=== PATIENT | male | born 1950 | race Caucasian/White ===

== ENCOUNTER 2019-11-10 14:36 | Emergency (ER) | payer MEDICAID, MEDICARE ==
--- NOTE | 2019-11-10 14:46 | EDM.PDOC ---
ED HPI GENERAL MEDICAL PROBLEM - General Chief Complaint: Medication Administration Stated Complaint: MED REFILL Time Seen by Provider: 11/10/19 14:44 Source of Information: Reports: Patient History Limitations: Reports: No Limitations - History of Present Illness INITIAL COMMENTS - FREE TEXT/NARRATIVE: HISTORY AND PHYSICAL: History of present illness: Patient is a 69-year-old male who presents to the emergency room with request of wanting his medications refilled. He states he previously Dr. Bowen at the [facility] who was filling his chronic medications. He attempted to get an appointment but was told the provider no longer works at that facility. He has ran out of his medication. He offers no systemic complaints. Patient denies any fever, chills, headache, change in vision, syncope or near syncope. Denies any chest pain, back pain, shortness of breath or cough. Denies any GI or symptoms. Patient has been eating and drinking appropriately. Review of systems: As per history of present illness and below otherwise all systems reviewed and negative. Past medical history: As per history of present illness and as reviewed below otherwise noncon tributory. Surgical history: As per history of present illness and as reviewed below otherwise noncontributory. Social history: See social history for further information Family history: As per history of present illness and as reviewed below otherwise noncontributory. Physical exam: General: Well-developed and well-nourished 69-year-old male. Alert and oriented. Nontoxic-appearing and in no acute distress. Vital signs are stable and have been reviewed by me. HEENT: Atraumatic, normocephalic, pupils equal and reactive bilaterally, negative for conjunctival pallor or scleral icterus, mucous membranes moist, TMs normal bilaterally, throat clear, neck supple, nontender, trachea midline. No drooling or trismus noted. No meningeal signs. No hot potato voice noted. Lungs: Clear to auscultation, breath sounds equal bilaterally, chest nontender. Heart: S1S2, regular rate and rhythm without overt murmur Abdomen: Soft, nondistended, nontender. Negative for masses or hepatosplenomegaly. Negative for costovertebral tenderness. Skin: Intact, warm, dry. No lesions or rashes noted. Extremities: Atraumatic, moves all extremities per self without difficulty or deficits, negative for cords or calf pain. Neurovascular unremarkable. Neuro: Awake, alert, oriented. Cranial nerves II through XII unremarkable. Cerebellum unremarkable. Motor and sensory unremarkable throughout. Exam nonfocal. Notes: Patient declines wanting or needing any diagnostics at this time, asymptomatic. The pharmacy was called to confirm dosing of his medications as he is unsure. Nursing staff did call our clinic to set him up a follow-up appointment for further care and management. Supportive care measures were reviewed and discussed. Voices understanding and is agreeable to plan of care. Denies any further questions or concerns at this time. Diagnostics: None Therapeutics: None Prescription: Carvediolol (15 days worth of all) Lisinopril Oxycodone Zofran Impression: Encounter for medication refill Plan: 1. Take your home medications as directed. Further medication refill must be done through a primary care provider. We made you an appointment with Dr. Aguirre on Thursday (11/18/2019) at 3:30pm. Please arrive 30 minutes early. Please wear a mask and bring your ID/Insurance cards. 2. You can alternate Tylenol and/or ibuprofen as needed for pain management. 3. Return to the emergency room as needed and as discussed. Definitive disposition and diagnosis as appropriate pending reevaluation and review of above. - Related Data Allergies Allergy/AdvReac Type Severity Reaction Status Date / Time No Known Allergies Allergy Verified 11/10/19 15:10 Home Meds: Home Meds carvediloL [Carvedilol] 6.25 mg PO BID 11/21/16 [History] oxyCODONE 10 mg PO Q4HR PRN 11/21/16 [History] Digoxin [Lanoxin] 250 mcg PO DAILY #0 tablet 11/25/16 [Rx] Lisinopril 5 mg PO DAILY 07/28/17 [History] Ondansetron [Zofran ODT] 4 mg PO Q6H PRN #10 tab.dis 01/20/19 [Rx] DULoxetine [Cymbalta] 30 mg PO DAILY 11/10/19 [History] DULoxetine [Cymbalta] 30 mg PO DAILY 15 Days #15 cap 11/10/19 [Rx] Digoxin 250 mcg PO DAILY 15 Days #15 tablet 11/10/19 [Rx] Ondansetron [Zofran ODT] 4 mg PO Q6H PRN #8 tab.dis 11/10/19 [Rx] Zolpidem Tartrate [Zolpidem Tartrate ER] 12.5 mg PO DAILY PRN 11/10/19 [History] carvediloL [Carvedilol] 6.25 mg PO BID 15 Days #30 tablet 11/10/19 [Rx] lisinopriL [Lisinopril] 5 mg PO DAILY 15 Days #15 tablet 11/10/19 [Rx] oxyCODONE HCl [Oxycodone HCL] 10 mg PO BID PRN 15 Days #30 tablet 11/10/19 [Rx] Past Medical History Cardiovascular History: Reports: Afib, High Cholesterol, Hypertension, Other (See Below) Respiratory History: Reports: None Gastrointestinal History: Reports: None Genitourinary History: Reports: None Musculoskeletal History: Reports: Back Pain, Chronic Neurological History: Reports: Neuropathy, Peripheral Psychiatric History: Reports: Depression Endocrine/Metabolic History: Reports: Obesity/BMI 30+, Other (See Below) Other Endocrine/Metabolic History: pre diabetic Hematologic History: Reports: None Dermatologic History: Other Dermatologic History: rosacea - Infectious Disease History Infectious Disease History: Reports: Chicken Pox, Measles, Mumps - Past Surgical History Head Surgeries/Procedures: Reports: None HEENT Surgical History: Reports: Oral Surgery Cardiovascular Surgical History: Reports: None GI Surgical History: Reports: None Male Surgical History: Reports: None Endocrine Surgical History: Reports: None Neurological Surgical History: Reports: None Musculoskeletal Surgical History: Reports: None Social & Family History - Family History Family Medical History: Noncontributory Cardiac: Reports: [place] Endocrine/Metabolic: Reports: Diabetes, type II - Caffeine Use Caffeine Use: Reports: Coffee ED ROS GENERAL - Review of Systems Review Of Systems: Comprehensive ROS is negative, except as noted in HPI. ED EXAM, GENERAL - Physical Exam Exam: See Below (See dictation) Course - Vital Signs Last Recorded V/S: Last Vital Signs Temp 96.5 F L 11/10/19 15:07 Pulse 97 11/10/19 15:43 Resp 18 11/10/19 15:43 BP 116/69 11/10/19 15:43 Pulse Ox 99 11/10/19 15:43 Departure - Departure Time of Disposition: 15:10 Disposition: Home, Self-Care 01 Condition: Good Clinical Impression: Encounter for medication refill - Discharge Information Prescriptions: carvediloL [Carvedilol] 6.25 mg PO BID 15 Days #30 tablet DULoxetine [Cymbalta] 30 mg PO DAILY 15 Days #15 cap Digoxin 250 mcg PO DAILY 15 Days #15 tablet lisinopriL [Lisinopril] 5 mg PO DAILY 15 Days #15 tablet oxyCODONE HCl [Oxycodone HCL] 10 mg PO BID PRN 15 Days #30 tablet PRN Reason: Pain Ondansetron [Zofran ODT] 4 mg PO Q6H PRN #8 tab.dis PRN Reason: Nausea Instructions: Medicine Refill at the Emergency Department Referrals: PCP,None [Primary Care Provider] - Forms: ED Department Discharge Additional Instructions: The following information is given to patients seen in the emergency department who are being discharged to home. This information is to outline your options for follow-up care. We provide all patients seen in our emergency department with a follow-up referral. The need for follow-up, as well as the timing and circumstances, are variable depending upon the specifics of your emergency department visit. If you don't have a primary care physician on staff, we will provide you with a referral. We always advise you to contact your personal physician following an emergency department visit to inform them of the circumstance of the visit and for follow-up with them and/or the need for any referrals to a consulting specialist. The emergency department will also refer you to a specialist when appropriate. This referral assures that you have the opportunity for follow-up care with a specialist. All of these measure are taken in an effort to provide you with optimal care, which includes your follow-up. Under all circumstances we always encourage you to contact your private physician who remains a resource for coordinating your care. When calling for follow-up care, please make the office aware that this follow-up is from your recent emergency room visit. If for any reason you are refused follow-up, please contact the [facility] Emergency Department at and asked to speak to the emergency department charge nurse. [facility] [address] [place] [id number] [address] Thank you for choosing the [facility] emergency department in [place] for your medical needs today. It was a pleasure caring for you. You were seen in the emergency department for medication refill. 1. Take your home medications as directed. Further medication refill must be done through a primary care provider. We made you an appointment with Dr. Aguirre on Thursday (11/18/2019) at 3:30pm. Please arrive 30 minutes early. Please wear a mask and bring your ID/Insurance cards. 2. You can alternate Tylenol and/or ibuprofen as needed for pain management. 3. Return to the emergency room as needed and as discussed. Sepsis Event Note (ED) - Focused Exam Vital Signs: Vital Signs Temp Pulse Resp BP Pulse Ox 11/10/19 15:43 97 18 116/69 99 11/10/19 15:07 96.5 F L 56 L 17 108/62 99
--- NOTE | 2019-11-10 15:52 | PCM.SN.2 ---
- Free Text/Narrative Note: Attending physician note I have seen and evaluated the patient with the advanced practice provider. Chief Complaint: Medication refill Brief HPI: Ran out of his narcotic medication and did not have a way to get it. [place] regulations state that we will need to get him to his primary care physician. ROS: Reviewed and agree Focused Exam: VITAL SIGNS: Reviewed. GENERAL: Awake, conversant, GCS 15, no apparent distress HEAD: No visible signs of trauma EYES: Pupils equal, EOM grossly intact EARS: Hearing grossly intact. MOUTH: No visible lesions NECK: Appears supple CHEST: Breathing comfortably, clear lung sounds CARDIAC: Regular rhythm ABDOMEN: Soft, nontender, benign exam NEUROLOGIC EXAM: Awake and Alert, non-focal SKIN: No visible rashes EXTREMITIES: No deformities noted VASCULAR: Appears well perfused Assessment & Plan: 1. Medication refill 2. Chronic pain 3. Opioid dependence
[2019-11-10 17:03] VITALS: BP 116/69; PULSE 97
== END 2019-11-10 15:44 | disposition home or self-care (01) ==
LOC: MW.ED 14:36
DX: Z76.0 Encounter for issue of repeat prescription (principal); I48.91 Unspecified atrial fibrillation; I10 Essential (primary) hypertension; G62.9 Polyneuropathy, unspecified; F32.9 Major depressive disorder, single episode, unspecified; E66.9 Obesity, unspecified; Z68.30 Body mass index [BMI] 30.0-30.9, adult; Z79.899 Other long term (current) drug therapy
CPT/HCPCS: 99281

== ENCOUNTER 2019-12-14 08:45 | Emergency (ER) | payer MEDICAID, MEDICARE ==
--- NOTE | 2019-12-14 09:42 | EDM.PDOC ---
ED HPI GENERAL MEDICAL PROBLEM - General Chief Complaint: Lower Extremity Injury/Pain Stated Complaint: NEUROPATHY IN BOTH FEET Time Seen by Provider: 12/14/19 08:48 Source of Information: Reports: Patient, Old Records History Limitations: Reports: No Limitations - History of Present Illness INITIAL COMMENTS - FREE TEXT/NARRATIVE: 69-year-old male with past medical history of axonal polyneuropathy, atrial fibrillation with RVR, chronic pain, restless leg syndrome, prediabetes, hypertension, digoxin therapy, hyperlipidemia, chronic back pain, peripheral neuropathy, depression complaining of lower extremity pain. Today the patient presents the emergency department complaining of worsening of his chronic bilateral lower extremity neuropathic pain. He states that he ran out of his prescribed long-acting opioid pain medications and is requesting a refill of long-acting oxycodone. He denies any new symptoms today, denies any recent trauma. Denies any erythema, fever, or chills. He states that he has been unable to get into see a primary physician in the past several weeks so he has been unable to get his medications refilled. He is not currently under the care of a pain management clinic. No other complaints at this time. Past medical history: Reviewed, no additional pertinent history. Surgical history: Reviewed in system, no additional pertinent history. Social history: Reviewed in system, no additional pertinent history. Family history: Reviewed in system, no additional pertinent history. PHYSICAL EXAM Vital signs reviewed. Nursing notes reviewed. Constitutional: Awake, alert, non-distressed. Head: Normocephalic, atraumatic. Eyes: EOMI, conjunctiva normal, no discharge, no scleral icterus. Cardiovascular: 2+ b/l DP pulses, capillary refill less than 2 seconds. Pulmonary: normal work of breathing, no accessory muscle use. Abdomen/GI: nondistended Musculoskeletal: No deformities. Integumentary: Appropriate color for ethnicity, warm, dry, no pallor or jaundice, no rash. Bilateral lower extremities are hairless. There is a clean appearing ulcer on the medial aspects of each great toe without drainage, erythema, or evidence of active infection.. Neurologic: Alert, answering questions appropriately, normal speech, no facial droop, moving all extremities well. Psychiatric: Appropriate mood and affect, normal thought process. bilateral legs Pain Score (Numeric/FACES): 10 - Related Data Allergies Allergy/AdvReac Type Severity Reaction Status Date / Time No Known Allergies Allergy Verified 12/14/19 09:08 Home Meds: Home Meds carvediloL [Carvedilol] 6.25 mg PO BID 11/21/16 [History] oxyCODONE 10 mg PO Q4HR PRN 11/21/16 [History] Digoxin [Lanoxin] 250 mcg PO DAILY #0 tablet 11/25/16 [Rx] Lisinopril 5 mg PO DAILY 07/28/17 [History] Ondansetron [Zofran ODT] 4 mg PO Q6H PRN #10 tab.dis 01/20/19 [Rx] DULoxetine [Cymbalta] 30 mg PO DAILY 11/10/19 [History] DULoxetine [Cymbalta] 30 mg PO DAILY 15 Days #15 cap 11/10/19 [Rx] Digoxin 250 mcg PO DAILY 15 Days #15 tablet 11/10/19 [Rx] Ondansetron [Zofran ODT] 4 mg PO Q6H PRN #8 tab.dis 11/10/19 [Rx] Zolpidem Tartrate [Zolpidem Tartrate ER] 12.5 mg PO DAILY PRN 11/10/19 [History] carvediloL [Carvedilol] 6.25 mg PO BID 15 Days #30 tablet 11/10/19 [Rx] lisinopriL [Lisinopril] 5 mg PO DAILY 15 Days #15 tablet 11/10/19 [Rx] oxyCODONE HCl [Oxycodone HCL] 10 mg PO BID PRN 15 Days #30 tablet 11/10/19 [Rx] Past Medical History HEENT History: Reports: None Cardiovascular History: Reports: Afib, High Cholesterol, Hypertension, Other (S ee Below) Respiratory History: Reports: None Gastrointestinal History: Reports: None Genitourinary History: Reports: None Musculoskeletal History: Reports: Back Pain, Chronic Neurological History: Reports: Neuropathy, Peripheral Psychiatric History: Reports: Depression Endocrine/Metabolic History: Reports: Obesity/BMI 30+, Other (See Below) Other Endocrine/Metabolic History: pre diabetic Hematologic History: Reports: None Immunologic History: Reports: None Oncologic (Cancer) History: Reports: None Dermatologic History: Other Dermatologic History: rosacea - Infectious Disease History Infectious Disease History: Reports: Chicken Pox, Measles, Mumps - Past Surgical History Head Surgeries/Procedures: Reports: None HEENT Surgical History: Reports: Oral Surgery Cardiovascular Surgical History: Reports: None GI Surgical History: Reports: None Male Surgical History: Reports: None Endocrine Surgical History: Reports: None Neurological Surgical History: Reports: None Musculoskeletal Surgical History: Reports: None Oncologic Surgical History: Reports: None Social & Family History - Family History Family Medical History: Noncontributory Cardiac: Reports: [place] Endocrine/Metabolic: Reports: Diabetes, type II - Tobacco Use Smoking Status *Q: Unknown Ever Smoked - Caffeine Use Caffeine Use: Reports: Coffee Review of Systems - Review of Systems Review Of Systems: See Below ED EXAM, GENERAL - Physical Exam Exam: See Below Course - Vital Signs Text/Narrative:: 69-year-old male presenting with worsening of his known chronic bilateral lower extremity neuropathy. Physical examination shows no evidence of infection or any acute changes to suggest inflammation or infectious process. Two clean- appering ulcers noted, one on each great toe. There is no evidence of an acute process at this point that require antibiotics or further testing. This seems to be an acute worsening of his known chronic pain due to peripheral neuropathy. Patient is requesting a refill of his long- acting opioids. I explained that we are not able to do this here in the emergency department, long-acting opioids need to be prescribed by a primary medical clinic or a pain management physician. I did offer a single dose of oral oxycodone and some acetaminophen, which he is agreeable with. There is no evidence of an acute process at this point. We will refer the patient to the podiatry clinic for follow-up of his toe ulcers and attempt to facilitate an earlier primary medicine clinic appointment. We will also provide him resources about a pain management clinic here in the area. Will recommend that he continue [id number] acetaminophen or ibuprofen along with [id number] Voltaren gel or lidocaine patches. He will need to follow-up with a primary medicine clinic in the next 1 to 2 weeks for reevaluation. Plan: Patient is stable to discharge home with outpatient primary care clinic and podiatry clinic follow-up. Strict emergency department return precautions were provided, patient indicated understanding. All questions were answered prior to departure. Discharged in good condition. Last Recorded V/S: Last Vital Signs Temp 36.4 C 12/14/19 09:03 Pulse 88 12/14/19 09:03 Resp 16 12/14/19 09:03 BP 141/75 H 12/14/19 09:03 Pulse Ox 98 12/14/19 09:03 - Orders/Labs/Meds Meds: Medications Discontinued Medications Generic Name Dose Route Start Last Admin Trade Name Blu PRN Reason Stop Dose Admin Acetaminophen 1,000 mg 12/14/19 09:57 12/14/19 10:14 Tylenol Extra Strength PO 12/14/19 09:58 1,000 mg ONETIME ONE Administration Oxycodone HCl 10 mg 12/14/19 09:57 12/14/19 10:14 Oxycodone PO 12/14/19 09:58 10 mg ONETIME ONE Administration Departure - Departure Time of Disposition: 10:02 Disposition: Home, Self-Care 01 Condition: Good Clinical Impression: Peripheral neuropathic pain Chronic pain Qualifiers: Chronic pain type: other chronic pain Qualified Code(s): G89.29 - Other chronic pain - Discharge Information *PRESCRIPTION DRUG MONITORING PROGRAM REVIEWED*: Yes *COPY OF PRESCRIPTION DRUG MONITORING REPORT IN PATIENT EFRAÍN: Not Applicable Instructions: Neuropathic Pain Referrals: [facility] - Family Practice [Provider Group] - 1 Week (For re-evaluation.) Forms: ED Department Discharge Additional Instructions: You were seen in the emergency department for lower extremity pain. I believe that your pain is due to worsening of your known bilateral lower extremity neuropathy. Unfortunately, the emergency department is not able to prescribe long-acting opioid pain medications such as OxyContin or long-acting oxycodone for chronic pain diagnoses. We are limited by federal guidelines and state regulations. You were given a dose of pain medication in the emergency department. I think that you need to follow-up closely with a family medicine clinic. Long-acting pain medications need to be prescribed by either a primary medicine (family medicine) clinic or a automotive painter. We will try to facilitate an early appointment with the family medicine clinic for follow-up. I also think that you need to follow-up with a podiatry clinic for evaluation of the ulcers on each of your big toes. I will also attempt to refer you to the pain management clinic for further evaluation and treatment of your chronic neuropathic pain. Treatment of chronic pain is complex. In the interim, I recommend treatment with common medication such as extra strength acetaminophen, ibuprofen, you can also try Voltaren gel which is available [id number], lidocaine patches, etc. Stronger pain medication such as opioids need to be prescribed by a primary care clinic or a pain management clinic. [facility] (Podiatry Clinic) Madan Terrazas DPM [id number] [place] [address] Specialty Clinic - Pain Management [address] [place] [id number] Please return the emergency department immediately if your symptoms worsen or if you feel worse. Thank you for choosing the [facility] emergency department in [place] for your medical needs today. It was a pleasure caring for you. The following information is given to patients seen in the emergency department who are being discharged. This information is to outline your options for follow-up care. We provide all patients seen in our emergency department with a follow-up referral. The need for follow-up, as well as the timing and circumstances, are variable depending upon the specifics of your emergency department visit. If you don't have a primary care physician on staff, we will provide you with a referral. We always advise you to contact your personal physician following an emergency department visit to inform them of the circumstance of the visit and for follow-up with them and/or the need for any referrals to a consulting specialist. The emergency department will also refer you to a specialist when appropriate. This referral assures that you have the opportunity for follow-up care with a specialist. All of these measure are taken in an effort to provide you with optimal care, which includes your follow-up. Under all circumstances we always encourage you to contact your private physician who remains a resource for coordinating your care. When calling for follow-up care, please make the office aware that this follow-up is from your recent emergency room visit. If for any reason you are refused follow-up, please contact the [facility] Emergency Department at and asked to speak to the emergency department charge nurse. If you do not have a primary care physician that is caring for you, you can contact these clinics below to set up an appointment to establish care: [facility] - Primary Care [address] [place] [id number] [facility] [address] [place] [id number] Sepsis Event Note (ED) - Evaluation Sepsis Screening Result: No Definite Risk - Focused Exam Vital Signs: Vital Signs Temp Pulse Resp BP Pulse Ox 12/14/19 09:03 36.4 C 88 16 141/75 H 98
[2019-12-14] MEDS ORDERED: Acetaminophen 500 MG Tab PO ONE (09:57)
[2019-12-14] MEDS ORDERED: oxyCODONE 5 MG Tab PO ONE (09:57)
[2019-12-14 11:11] VITALS: BP 113/69; PULSE 94
== END 2019-12-14 10:50 | disposition home or self-care (01) ==
LOC: MW.ED 08:45
DX: G62.9 Polyneuropathy, unspecified (principal); G89.29 Other chronic pain; I10 Essential (primary) hypertension; I48.91 Unspecified atrial fibrillation; F32.9 Major depressive disorder, single episode, unspecified; E66.9 Obesity, unspecified; Z79.899 Other long term (current) drug therapy; Z68.29 Body mass index [BMI] 29.0-29.9, adult
CPT/HCPCS: 99283; A9270

== ENCOUNTER 2020-02-29 11:46 | Observation (INO) | payer MEDICAID, MEDICARE ==
[2020-02-29] MEDS ORDERED: Sodium Chloride 0.9% 2.5 ML Syringe FLUSH PRN (12:11)
[2020-02-29] MEDS ORDERED: Sodium Chloride 0.9% 10 ML Syringe FLUSH PRN (12:11)
[2020-02-29] MEDS ORDERED: Sodium Chloride 0.9% 1,000 ML IV ONE (12:11)
[2020-02-29] MEDS ORDERED: Ondansetron 4 MG/2 ML SDV IVPUSH ONE (12:15)
[2020-02-29] MEDS ORDERED: Pantoprazole 80 MG in Sodium Chloride 0.9% 20 ML IVPUSH ONE (12:15)
[2020-02-29] MEDS ORDERED: Diltiazem 25 MG/5 ML SDV IVPUSH ONE (12:16)
[2020-02-29] MEDS ORDERED: Sodium Chloride 0.9% 100 ML ONE (12:26)
[2020-02-29] MEDS ORDERED: Diltiazem 100 MG in Sodium Chloride 0.9% 100 ML IV SCH ×2 (12:30→12:45)
[2020-02-29 12:50] LABS: BLOOD UREA NITROGEN,BUN 21 mg/dL (7.0-18.0); CARBON DIOXIDE,CO2 22.9 mmol/L (21.0-32.0); CHLORIDE,CL 100 mmol/L (98-107); GLUCOSE RANDOM 149 mg/dL (74-106); SODIUM,NA 135 mmol/L (136-148)
[2020-02-29] MEDS ORDERED: Digoxin 500 MCG/2 ML Amp IVPUSH ONE (13:19)
[2020-02-29] MEDS ORDERED: Carvedilol 6.25 MG Tab PO ONE (13:33)
--- NOTE | 2020-02-29 13:37 | CR ---
INDICATION: Shortness of breath TECHNIQUE: Chest 1 views COMPARISON: November 24, 2016 FINDINGS: Cardiovascular and mediastinum: Heart size and vasculature are normal in caliber and appearance. Lungs and pleural spaces: Lungs are clear. No sign of infiltrate or mass. No sign of pleural effusion. No pneumothorax. Bones and soft tissues: No significant findings. IMPRESSION: No acute findings and no significant changes from the prior exam. Dictated by Jose Guadalupe Grey MD @ Feb 29 2020 1:34PM Signed by Dr. Jose Guadalupe Grey @ Feb 29 2020 1:36PM
[2020-02-29] MEDS ORDERED: Bacitracin/Neomycin/Polymyxin B Oint 28.4 GM Tube TOP ONE (15:03)
--- NOTE | 2020-02-29 15:09 | EDM.PDOC ---
ED HPI GENERAL MEDICAL PROBLEM - General Chief Complaint: Cardiovascular Problem Stated Complaint: A-FIB Time Seen by Provider: 02/29/20 11:55 - History of Present Illness INITIAL COMMENTS - FREE TEXT/NARRATIVE: HISTORY AND PHYSICAL: History of present illness: This is a 70-year-old gentleman with history significant for atrial fibrillation with RVR, noncompliance with medication, hypertension who presents ER today secondary to being seen at his doctor's office and noted to have a heart rate of 1 50-1 60. Patient reports that he has had some dark tarry sticky stools so he stopped taking his Pradaxa which he takes for his atrial fibrillation. Patient reports that he stopped taking his medications for his blood pressure as well secondary to running out of his medicines. Patient denies any recent fevers, shakes, chills, nausea, vomiting, diarrhea, dysuria, frequency or urgency, chest pain. Patient reports he has been feeling short of breath, weak and dizzy. Upon arrival to the ED, the patient was noted to have a heart rate of 150-160 which was irregularly irregular. Patient is not complaining of any chest discomfort or shortness of breath at this time. Patient denies any calf tenderness or calf edema. Patient has any abdominal pain or nausea. Patient denies any history of peptic ulcer disease in the past. Patient reports that approximately 2 to 3 weeks ago he cut back his Pradaxa from 2 tablets a day down to 1 tab a day secondary to dark stools. Patient reports that that happened for 1 day and then resolved. Patient reports that he continue taking 1 tablet/day until recently when he noticed that his stool was dark once again and so he stopped taking his Pradaxa completely. Review of systems: As per history of present illness and below otherwise all systems reviewed and negative. Past medical history: As per history of present illness and as reviewed below otherwise noncontributory. Surgical history: As per history of present illness and as reviewed below otherwise noncontributory. Social history: No reported history of drug or alcohol abuse. Family history: As per history of present illness and as reviewed below otherwise noncontributory. Physical exam: Constitutional: Patient is oriented to person, place, and time. Appears well- developed and well-nourished. No distress. HEENT: Moist mucous membranes Head: Normocephalic and atraumatic Eyes: Right eye exhibits no discharge. Left eye exhibits no discharge. No scleral icterus Neck: Normal range of motion. No tracheal deviation present. Cardiovascular: Irregularly irregular, tachycardic Pulmonary: Effort normal, no respiratory distress. No wheezing rales or rhonchi Abdominal: No distention Musculoskeletal: Normal range of motion Neurologic: Alert and oriented to person, place and time. Skin: [place], warm and dry. Psychiatric: Normal mood and affect. Behavior is normal. Judgment and thought content normal. Nursing note and vital signs have been reviewed Rectal exam: Stool heme-negative dark stool. Diagnostics: CBC, CMP within normal limits Troponin normal Chest Xray: Normal cardiac silhouette No infiltrates or effusions identified. No PTX No evidence of acute bony fracture. As interpreted by ER MD: Lesvia EKG: A. fib with RVR heart rate of 140 bpm Right axis deviation Nonspecific ST-T wave abnormalities No evidence of ST elevation HI As interpreted by ER physician: Lesvia [employer]rapeutics: Patient given Cardizem 20 mg IV bolus followed by Cardizem drip at 5 mg/h. Patient has been noncompliant with his digoxin as well as with his beta-cristina. Patient given 0.5 mcg of digoxin IV in the ED as well as his carvedilol 6.25 mg p.o. Patient's heart rate responded beautifully to the Cardizem drip and bolus. Patient's heart rate currently is 85. Cardizem drip has been discontinued after receiving his carvedilol and as well as his digoxin. Patient is a moderate off the Cardizem drip for approximately 1 and 1/2 hours without any increase in his heart rate. Patient is currently rate controlled A. fib at a heart rate of 85. Patient was also complaining of black tarry sticky stools x1 day. Patient's rectal exam here revealed heme-negative stool. Patient's hemoglobin is greater than 14. Patient is hemodynamically stable at this time. We will continue to monitor patient stool for any need for further evaluation of GI bleed. Critical Care: The high probability of sudden, clinically significant deterioration in the patient's condition required the highest level of my preparedness to intervene urgently. The services I provided to this patient were to treat and/or prevent clinically significant deterioration. Services included the following: chart data review, reviewing nursing notes and/or old charts, documentation time, healthcare risk control consultant collaboration regarding findings and treatment options, medication orders and management, direct patient care, vital sign assessments and ordering, interpreting and reviewing diagnostic studies/lab tests. Aggregate critical care time includes only time during which I was engaged inwork directly related to the patient's care, as described above, whether at the bedside or elsewhere in the Emergency Department. It did not include time spent performing other reported procedures or the services of residents, students, nurses or physician assistants. Critical Care Time: 35 minutes Assessment and plan: Patient presents the ED today with atrial fibrillation with RVR. Patient's heart rate has been controlled and is currently off Cardizem drip. Case has been discussed with Dr. Damon who agrees with observation level care for this patient. [] Definitive disposition and diagnosis as appropriate pending reevaluation and review of above. Feet Pain Score (Numeric/FACES): 4 - Related Data Allergies Allergy/AdvReac Type Severity Reaction Status Date / Time No Known Allergies Allergy Verified 02/29/20 11:59 Home Meds: Home Meds Alpha Lipoic Acid 600 mg PO DAILY 02/29/20 [History] Juan Manuel/Vit B12/Folic Acid/Vit B6 [Folic Acid-Vit B6-Vit B12 Tab] 1 tab PO DAILY 02/29/20 [History] Digoxin 250 mg PO DAILY 02/29/20 [History] Ondansetron [Zofran] 4 mg PO ASDIRECTED 02/29/20 [History] Zolpidem [Ambien] 10 mg PO BEDTIME 02/29/20 [History] carvediloL [Carvedilol] 6.25 mg PO BID 02/29/20 [History] lisinopriL [Lisinopril] 5 mg PO DAILY 02/29/20 [History] oxyCODONE HCl [Oxycodone HCL] 10 mg PO DAILY 02/29/20 [History] rOPINIRole HCl [Requip] 0.5 mg PO BEDTIME 02/29/20 [History] Past Medical History HEENT History: Reports: None Cardiovascular History: Reports: Afib, High Cholesterol, Hypertension, Other (See Below) Respiratory History: Reports: None Gastrointestinal History: Reports: None Genitourinary History: Reports: None Musculoskeletal History: Reports: Back Pain, Chronic Neurological History: Reports: Neuropathy, Peripheral Psychiatric History: Reports: Depression Endocrine/Metabolic History: Reports: Obesity/BMI 30+, Other (See Below) Other Endocrine/Metabolic History: pre diabetic Hematologic History: Reports: None Immunologic History: Reports: None Oncologic (Cancer) History: Reports: None Dermatologic History: Other Dermatologic History: rosacea - Infectious Disease History Infectious Disease History: Reports: Chicken Pox, Measles, Mumps - Past Surgical History Head Surgeries/Procedures: Reports: None HEENT Surgical History: Reports: Oral Surgery Cardiovascular Surgical History: Reports: None GI Surgical History: Reports: None Male Surgical History: Reports: None Endocrine Surgical History: Reports: None Neurological Surgical History: Reports: None Musculoskeletal Surgical History: Reports: None Oncologic Surgical History: Reports: None Social & Family History - Family History Family Medical History: Noncontributory Cardiac: Reports: HI Endocrine/Metabolic: Reports: Diabetes, type II - Tobacco Use Tobacco Use Status *Q: Never Tobacco User - Caffeine Use Caffeine Use: Reports: None - Recreational Drug Use Recreational Drug Use: No ED ROS GENERAL - Review of Systems Review Of Systems: See Below ED EXAM, GENERAL - Physical Exam Exam: See Below #1 Interpretation EKG Interpretation Comments: A. fib with RVR heart rate of 140 bpm Right axis deviation Nonspecific ST-T wave abnormalities No evidence of ST elevation HI As interpreted by ER physician: Lesvia Course - Vital Signs Last Recorded V/S: Last Vital Signs Temp 96.7 F L 02/29/20 11:59 Pulse 79 02/29/20 14:30 Resp 16 02/29/20 14:30 BP 152/77 H 02/29/20 14:30 Pulse Ox 100 02/29/20 14:30 - Orders/Labs/Meds Orders: Active Orders 24 hr Category Date Time Status Patient Status [ADT] Routine ADT 02/29/20 14:48 Active Cardiac Monitoring [RC] . DIRECTED Care 02/29/20 12:11 Active EKG Documentation Completion [RC] AM Care 02/29/20 12:11 Active Pulse Oximetry [RC] ASDIRECTED Care 02/29/20 12:11 Active Diltiazem [Cardizem] 100 mg Med 02/29/20 12:30 Active Sodium Chloride 0.9% [Normal Saline] 100 ml IV NOW Diltiazem [Cardizem] 100 mg Med 02/29/20 12:45 Active Sodium Chloride 0.9% [Normal Saline] 100 ml IV NOW Sodium Chloride 0.9% [Saline Flush] Med 02/29/20 12:11 Active 10 ml FLUSH ASDIRECTED PRN Sodium Chloride 0.9% [Saline Flush] Med 02/29/20 12:11 Active 2.5 ml FLUSH ASDIRECTED PRN Saline Lock Insert [OM.PC] Stat Oth 02/29/20 12:11 Ordered Medication Orders Diltiazem HCl 100 mg/ Sodium (Chloride) 100 mls @ 5 mls/hr IV NOW LAKIA; Protocol Last Admin: 02/29/20 12:33 Dose: 5 mg/hr, 5 mls/hr Documented by: [id number] Diltiazem HCl 100 mg/ Sodium (Chloride) 100 mls @ 5 mls/hr IV NOW LAKIA; Protocol Sodium Chloride (Saline Flush) 10 ml FLUSH ASDIRECTED PRN PRN Reason: Keep Vein Open Last Admin: 02/29/20 12:30 Dose: 10 ml Documented by: JAMIE Sodium Chloride (Saline Flush) 2.5 ml FLUSH ASDIRECTED PRN PRN Reason: Keep Vein Open Last Admin: 02/29/20 12:30 Dose: 2.5 ml Documented by: [id number] Labs: Laboratory Tests 02/29/20 02/29/20 02/29/20 Range/Units 11:50 11:50 11:50 WBC 8.67 (4.0-11.0) K/uL RBC 4.93 (4.50-5.90) M/uL Hgb 17.8 H (13.0-17.0) g/dL Hct 50.6 H (38.0-50.0) % MCV 102.6 H (80.0-98.0) fL MCH 36.1 H (27.0-32.0) pg MCHC 35.2 (31.0-37.0) g/dL RDW Std Deviation 48.9 (28.0-62.0) fl RDW Coeff of Eileen 13 (11.0-15.0) % Plt Count 154 (150-400) K/uL MPV 10.90 (7.40-12.00) fL Neut % (Auto) 55.9 (48.0-80.0) % Lymph % (Auto) 32.2 (16.0-40.0) % Ellis % (Auto) 10.3 (0.0-15.0) % Eos % (Auto) 1.0 (0.0-7.0) % Baso % (Auto) 0.6 (0.0-1.5) % Neut # (Auto) 4.9 (1.4-5.7) K/uL Lymph # (Auto) 2.8 H (0.6-2.4) K/uL Ellis # (Auto) 0.9 H (0.0-0.8) K/uL Eos # (Auto) 0.1 (0.0-0.7) K/uL Baso # (Auto) 0.1 (0.0-0.1) K/uL Nucleated RBC % 0.0 /100WBC Nucleated RBCs # 0 K/uL INR 1.28 APTT 25.7 (18.6-31.3) SEC Sodium 135 L (136-148) mmol/L Potassium 4.0 (3.5-5.1) mmol/L Chloride 100 (98-107) mmol/L Carbon Dioxide 22.9 (21.0-32.0) mmol/L BUN 21 H (7.0-18.0) mg/dL Creatinine 1.4 H (0.8-1.3) mg/dL Est Cr Clr Drug Dosing 54.66 mL/min Estimated GFR (MDRD) 50.2 ml/min Glucose 149 H (74-106) mg/dL Calcium 9.7 (8.5-10.1) mg/dL Total Bilirubin 1.9 H (0.2-1.0) mg/dL AST 69 H (15-37) IU/L ALT 100 H (14-63) IU/L Alkaline Phosphatase 65 (46-116) U/L Troponin I < 0.050 (0.000-0.056) ng/mL Total Protein 8.5 H (6.4-8.2) g/dL Albumin 4.3 (3.4-5.0) g/dL Globulin 4.2 H (2.6-4.0) g/dL Albumin/Globulin Ratio 1.0 (0.9-1.6) Urine Color Urine Appearance Urine pH (5.0-8.0) Ur Specific [place] (1.001-1.035) Urine Protein (NEGATIVE) mg/dL Urine Glucose (UA) (NEGATIVE) mg/dL Urine Ketones (NEGATIVE) mg/dL Urine Occult Blood (NEGATIVE) Urine Nitrite (NEGATIVE) Urine Bilirubin (NEGATIVE) Urine Urobilinogen (<2.0) EU/dL Ur Leukocyte Esterase (NEGATIVE) Urine RBC (0-2/HPF) Urine WBC (0-5/HPF) Ur Epithelial Cells (NONE-FEW) Urine Bacteria (NEGATIVE) Digoxin < 0.2 L (0.9-2.0) ng/mL SARS-CoV-2 RNA (KAR) (NEGATIVE) Blood Type Antibody Screen 02/29/20 02/29/20 02/29/20 Range/Units 12:30 12:45 14:24 WBC (4.0-11.0) K/uL RBC (4.50-5.90) M/uL Hgb (13.0-17.0) g/dL Hct (38.0-50.0) % MCV (80.0-98.0) fL MCH (27.0-32.0) pg MCHC (31.0-37.0) g/dL RDW Std Deviation (28.0-62.0) fl RDW Coeff of Eileen (11.0-15.0) % Plt Count (150-400) K/uL MPV (7.40-12.00) fL Neut % (Auto) (48.0-80.0) % Lymph % (Auto) (16.0-40.0) % Ellis % (Auto) (0.0-15.0) % Eos % (Auto) (0.0-7.0) % Baso % (Auto) (0.0-1.5) % Neut # (Auto) (1.4-5.7) K/uL Lymph # (Auto) (0.6-2.4) K/uL Ellis # (Auto) (0.0-0.8) K/uL Eos # (Auto) (0.0-0.7) K/uL Baso # (Auto) (0.0-0.1) K/uL Nucleated RBC % /100WBC Nucleated RBCs # K/uL INR APTT (18.6-31.3) SEC Sodium (136-148) mmol/L Potassium (3.5-5.1) mmol/L Chloride (98-107) mmol/L Carbon Dioxide (21.0-32.0) mmol/L BUN (7.0-18.0) mg/dL Creatinine (0.8-1.3) mg/dL Est Cr Clr Drug Dosing mL/min Estimated GFR (MDRD) ml/min Glucose (74-106) mg/dL Calcium (8.5-10.1) mg/dL Total Bilirubin (0.2-1.0) mg/dL AST (15-37) IU/L ALT (14-63) IU/L Alkaline Phosphatase (46-116) U/L Troponin I (0.000-0.056) ng/mL Total Protein (6.4-8.2) g/dL Albumin (3.4-5.0) g/dL Globulin (2.6-4.0) g/dL Albumin/Globulin Ratio (0.9-1.6) Urine Color DARK YELLOW Urine Appearance CLEAR Urine pH 7.0 (5.0-8.0) Ur Specific [place] 1.020 (1.001-1.035) Urine Protein 30 H (NEGATIVE) mg/dL Urine Glucose (UA) NEGATIVE (NEGATIVE) mg/dL Urine Ketones TRACE H (NEGATIVE) mg/dL Urine Occult Blood NEGATIVE (NEGATIVE) Urine Nitrite NEGATIVE (NEGATIVE) Urine Bilirubin NEGATIVE (NEGATIVE) Urine Urobilinogen >=8.0 H (<2.0) EU/dL Ur Leukocyte Esterase NEGATIVE (NEGATIVE) Urine RBC 0-2 (0-2/HPF) Urine WBC 0-1 (0-5/HPF) Ur Epithelial Cells RARE (NONE-FEW) Urine Bacteria RARE (NEGATIVE) Digoxin (0.9-2.0) ng/mL SARS-CoV-2 RNA (KAR) NEGATIVE (NEGATIVE) Blood Type AB POSITIVE Antibody Screen NEGATIVE Meds: Medications Generic Name Dose Route Start Last Admin Trade Name Freq PRN Reason Stop Dose Admin Diltiazem HCl 100 mg/ Sodium 100 mls @ 5 mls/hr 02/29/20 12:30 02/29/20 12:33 Chloride IV 5 mg/hr NOW LAKIA 5 mls/hr Administration Protocol 5 MG/HR Diltiazem HCl 100 mg/ Sodium 100 mls @ 5 mls/hr 02/29/20 12:45 Chloride IV NOW LAKIA Protocol 5 MG/HR Sodium Chloride 10 ml 02/29/20 12:11 02/29/20 12:30 Saline Flush FLUSH 10 ml ASDIRECTED PRN Administration Keep Vein Open Sodium Chloride 2.5 ml 02/29/20 12:11 02/29/20 12:30 Saline Flush FLUSH 2.5 ml ASDIRECTED PRN Administration Keep Vein Open Discontinued Medications Generic Name Dose Route Start Last Admin Trade Name Freq PRN Reason Stop Dose Admin Carvedilol 6.25 mg 02/29/20 13:33 02/29/20 14:19 Coreg PO 02/29/20 13:34 6.25 mg ONETIME ONE Administration Digoxin 500 mcg 02/29/20 13:19 02/29/20 13:53 Lanoxin IVPUSH 02/29/20 13:20 500 mcg ONETIME ONE Administration Diltiazem HCl 20 mg 02/29/20 12:16 02/29/20 12:31 Diltiazem IVPUSH 02/29/20 12:17 20 mg ONETIME ONE Administration Sodium Chloride 1,000 mls @ 999 mls/hr 02/29/20 12:11 02/29/20 12:29 Normal Saline IV 02/29/20 13:11 999 mls/hr .Bolus ONE Administration Pantoprazole Sodium 80 mg/ 20 mls @ 420 mls/hr 02/29/20 12:15 02/29/20 12:30 Sodium Chloride IVPUSH 02/29/20 12:17 420 mls/hr ONETIME ONE Administration Sodium Chloride Confirm 02/29/20 12:26 02/29/20 12:31 Normal Saline Administered 02/29/20 12:27 Not Given Dose 100 mls @ as directed .ROUTE .STK-MED ONE Neomycin/Polymyxin/Bacitracin 1 gm 02/29/20 15:03 Triple Antibiotic Oint TOP 02/29/20 15:04 ONETIME ONE Ondansetron HCl 4 mg 02/29/20 12:15 02/29/20 12:31 Zofran IVPUSH 02/29/20 12:16 4 mg ONETIME ONE Administration Departure - Departure Time of Disposition: 15:19 Disposition: Refer to Observation Condition: Fair Clinical Impression: Atrial fibrillation with RVR Referrals: PCP,None [Primary Care Provider] - Forms: ED Department Discharge Sepsis Event Note (ED) - Evaluation Sepsis Screening Result: No Definite Risk - Focused Exam Vital Signs: Vital Signs Temp Pulse Pulse Resp BP BP Pulse Ox 02/29/20 14:30 79 16 152/77 H 100 02/29/20 14:19 77 142/82 H 02/29/20 13:59 83 18 123/78 100 02/29/20 13:53 87 02/29/20 12:42 98 16 127/65 100 02/29/20 11:59 96.7 F L 157 H 18 130/101 H 96 - My Orders Last 24 Hours: My Active Orders 02/29/20 12:11 Cardiac Monitoring [RC] . DIRECTED EKG Documentation Completion [RC] AM Pulse Oximetry [RC] ASDIRECTED Sodium Chloride 0.9% [Saline Flush] 10 ml FLUSH ASDIRECTED PRN Sodium Chloride 0.9% [Saline Flush] 2.5 ml FLUSH ASDIRECTED PRN Saline Lock Insert [OM.PC] Stat 02/29/20 12:30 Diltiazem [Cardizem] 100 mg Sodium Chloride 0.9% [Normal Saline] 100 ml IV NOW 02/29/20 12:45 Diltiazem [Cardizem] 100 mg Sodium Chloride 0.9% [Normal Saline] 100 ml IV NOW 02/29/20 14:48 Patient Status [ADT] Routine - Assessment/Plan Last 24 Hours: My Active Orders 02/29/20 12:11 Cardiac Monitoring [RC] . DIRECTED EKG Documentation Completion [RC] AM Pulse Oximetry [RC] ASDIRECTED Sodium Chloride 0.9% [Saline Flush] 10 ml FLUSH ASDIRECTED PRN Sodium Chloride 0.9% [Saline Flush] 2.5 ml FLUSH ASDIRECTED PRN Saline Lock Insert [OM.PC] Stat 02/29/20 12:30 Diltiazem [Cardizem] 100 mg Sodium Chloride 0.9% [Normal Saline] 100 ml IV NOW 02/29/20 12:45 Diltiazem [Cardizem] 100 mg Sodium Chloride 0.9% [Normal Saline] 100 ml IV NOW 02/29/20 14:48 Patient Status [ADT] Routine
--- NOTE | 2020-02-29 15:21 | PCM.HP.2 ---
H&P History of Present Illness - General Date of Service: 02/29/20 Admit Problem/Dx: Admission Diagnosis/Problem Admission Diagnosis/Problem Atrial fibrillation with rapid ventricular response Source of Information: Patient History Limitations: Reports: No Limitations - History of Present Illness Initial Comments - Free Text/Narative: 70-year-old male presents complaining of "feeling unwell" and also reports having a "dark tarry black stool" earlier this morning. He has a PMH of atrial fibrillation hepatitis C, HTN, non-ischemic cardiomyopathy, peripheral neuropathy and chronic opioid medication use. Patient reports being on Pradaxa in the past for his atrial fibrillation but stopped taking it 6 months ago after noticing his stools "got darker." Patient reports taking TUMS earlier this morning. He was seen in the primary care clinic this morning and was noted to be in a-fib with RVR and was transferred to the ER. Per chart review, patient has history of medication non-compliance. He denies having any fevers, chills, sore throat, cough, SOB, chest pain, nausea, vomiting, abdominal pain, diarrhea or blood in urine. He reports chronic pain, numbness and tingling in his legs. In the ER, Hgb 17.8, creatinine 1.4, troponin negative, CXR negative and COVID- 19 test negative. Patient noted to be in atrial fibrillation with RVR. He was given IV 1 L NS bolus, IV PPI 80 mg, digoxin 500 mcg, IV diltiazem and carvedilol. He was eventually started on Cardizem drip and was weaned off while in the ER and remained rate controlled. Hemoccult stool test done by ER provided and was negative. Patient admitted for further evaluation and treatment. Feet Pain Score (Numeric/FACES): 4 - Related Data Allergies/Adverse Reactions: Allergies Allergy/AdvReac Type Severity Reaction Status Date / Time No Known Allergies Allergy Verified 02/29/20 11:59 Home Medications: Home Meds Alpha Lipoic Acid 600 mg PO DAILY 02/29/20 [History] Juan Manuel/Vit B12/Folic Acid/Vit B6 [Folic Acid-Vit B6-Vit B12 Tab] 1 tab PO DAILY 02/29/20 [History] Digoxin 250 mg PO DAILY 02/29/20 [History] Ondansetron [Zofran] 4 mg PO ASDIRECTED 02/29/20 [History] Zolpidem [Ambien] 10 mg PO BEDTIME 02/29/20 [History] carvediloL [Carvedilol] 6.25 mg PO BID 02/29/20 [History] lisinopriL [Lisinopril] 5 mg PO DAILY 02/29/20 [History] oxyCODONE HCl [Oxycodone HCL] 10 mg PO DAILY 02/29/20 [History] rOPINIRole HCl [Requip] 0.5 mg PO BEDTIME 02/29/20 [History] Past Medical History HEENT History: Reports: None Cardiovascular History: Reports: Afib, High Cholesterol, Hypertension, Other (See Below) Respiratory History: Reports: None Gastrointestinal History: Reports: None Genitourinary History: Reports: None Musculoskeletal History: Reports: Back Pain, Chronic Neurological History: Reports: Neuropathy, Peripheral Psychiatric History: Reports: Depression Endocrine/Metabolic History: Reports: Obesity/BMI 30+, Other (See Below) Other Endocrine/Metabolic History: pre diabetic Hematologic History: Reports: None Immunologic History: Reports: None Oncologic (Cancer) History: Reports: None Dermatologic History: Other Dermatologic History: rosacea - Infectious Disease History Infectious Disease History: Reports: Chicken Pox, Measles, Mumps - Past Surgical History Head Surgeries/Procedures: Reports: None HEENT Surgical History: Reports: Oral Surgery Cardiovascular Surgical History: Reports: None GI Surgical History: Reports: None Male Surgical History: Reports: None Endocrine Surgical History: Reports: None Neurological Surgical History: Reports: None Musculoskeletal Surgical History: Reports: None Oncologic Surgical History: Reports: None Social & Family History - Family History Family Medical History: Noncontributory Cardiac: Reports: MA Endocrine/Metabolic: Reports: Diabetes, type II - Tobacco Use Tobacco Use Status *Q: Never Tobacco User - Caffeine Use Caffeine Use: Reports: None - Recreational Drug Use Recreational Drug Use: No H&P Review of Systems - Review of Systems: Review Of Systems: Comprehensive ROS is negative, except as noted in HPI. Exam - Exam Exam: See Below - Vital Signs Vital Signs: Last Vital Signs Temp 35.9 C L 02/29/20 11:59 Pulse 79 02/29/20 14:30 Resp 16 02/29/20 14:30 BP 152/77 H 02/29/20 14:30 Pulse Ox 100 02/29/20 14:30 Weight: 83.915 kg - Exam General: Alert, Oriented, Cooperative, Other (NAD) HEENT: Conjunctiva Clear, EOMI, Hearing Intact, Pupils Equal, Pupils Reactive Neck: Supple, Trachea Midline Lungs: Clear to Auscultation, Normal Respiratory Effort Cardiovascular: Regular Rate, Irregular Rhythm GI/Abdominal Exam: Normal Bowel Sounds, Soft, Non-Tender, No Distention Extremities: Normal Inspection, No Pedal Edema Peripheral Pulses: 2+: Radial (L), Radial (R) Skin: Warm, Dry, Intact Neurological: Cranial Nerves Intact, Strength Equal Bilateral, Normal Speech, Normal Tone Neuro Extensive - Mental Status: Alert, Oriented x3, Normal Mood/Affect Psychiatric: Alert, Normal Affect, Normal Mood - Patient Data Lab Results Last 24 hrs: Laboratory Results - last 24 hr 02/29/20 02/29/20 02/29/20 Range/Units 11:50 11:50 11:50 WBC 8.67 (4.0-11.0) K/uL RBC 4.93 (4.50-5.90) M/uL Hgb 17.8 H (13.0-17.0) g/dL Hct 50.6 H (38.0-50.0) % MCV 102.6 H (80.0-98.0) fL MCH 36.1 H (27.0-32.0) pg MCHC 35.2 (31.0-37.0) g/dL RDW Std Deviation 48.9 (28.0-62.0) fl RDW Coeff of Eileen 13 (11.0-15.0) % Plt Count 154 (150-400) K/uL MPV 10.90 (7.40-12.00) fL Neut % (Auto) 55.9 (48.0-80.0) % Lymph % (Auto) 32.2 (16.0-40.0) % Banner % (Auto) 10.3 (0.0-15.0) % Eos % (Auto) 1.0 (0.0-7.0) % Baso % (Auto) 0.6 (0.0-1.5) % Neut # (Auto) 4.9 (1.4-5.7) K/uL Lymph # (Auto) 2.8 H (0.6-2.4) K/uL Banner # (Auto) 0.9 H (0.0-0.8) K/uL Eos # (Auto) 0.1 (0.0-0.7) K/uL Baso # (Auto) 0.1 (0.0-0.1) K/uL Nucleated RBC % 0.0 /100WBC Nucleated RBCs # 0 K/uL INR 1.28 APTT 25.7 (18.6-31.3) SEC Sodium 135 L (136-148) mmol/L Potassium 4.0 (3.5-5.1) mmol/L Chloride 100 (98-107) mmol/L Carbon Dioxide 22.9 (21.0-32.0) mmol/L BUN 21 H (7.0-18.0) mg/dL Creatinine 1.4 H (0.8-1.3) mg/dL Est Cr Clr Drug Dosing 54.66 mL/min Estimated GFR (MDRD) 50.2 ml/min Glucose 149 H (74-106) mg/dL Calcium 9.7 (8.5-10.1) mg/dL Total Bilirubin 1.9 H (0.2-1.0) mg/dL AST 69 H (15-37) IU/L ALT 100 H (14-63) IU/L Alkaline Phosphatase 65 (46-116) U/L Troponin I < 0.050 (0.000-0.056) ng/mL Total Protein 8.5 H (6.4-8.2) g/dL Albumin 4.3 (3.4-5.0) g/dL Globulin 4.2 H (2.6-4.0) g/dL Albumin/Globulin Ratio 1.0 (0.9-1.6) Urine Color Urine Appearance Urine pH (5.0-8.0) Ur Specific [place] (1.001-1.035) Urine Protein (NEGATIVE) mg/dL Urine Glucose (UA) (NEGATIVE) mg/dL Urine Ketones (NEGATIVE) mg/dL Urine Occult Blood (NEGATIVE) Urine Nitrite (NEGATIVE) Urine Bilirubin (NEGATIVE) Urine Urobilinogen (<2.0) EU/dL Ur Leukocyte Esterase (NEGATIVE) Urine RBC (0-2/HPF) Urine WBC (0-5/HPF) Ur Epithelial Cells (NONE-FEW) Urine Bacteria (NEGATIVE) Digoxin < 0.2 L (0.9-2.0) ng/mL SARS-CoV-2 RNA (KAR) (NEGATIVE) Blood Type Antibody Screen 02/29/20 02/29/20 02/29/20 Range/Units 12:30 12:45 14:24 WBC (4.0-11.0) K/uL RBC (4.50-5.90) M/uL Hgb (13.0-17.0) g/dL Hct (38.0-50.0) % MCV (80.0-98.0) fL MCH (27.0-32.0) pg MCHC (31.0-37.0) g/dL RDW Std Deviation (28.0-62.0) fl RDW Coeff of Eileen (11.0-15.0) % Plt Count (150-400) K/uL MPV (7.40-12.00) fL Neut % (Auto) (48.0-80.0) % Lymph % (Auto) (16.0-40.0) % Banner % (Auto) (0.0-15.0) % Eos % (Auto) (0.0-7.0) % Baso % (Auto) (0.0-1.5) % Neut # (Auto) (1.4-5.7) K/uL Lymph # (Auto) (0.6-2.4) K/uL Banner # (Auto) (0.0-0.8) K/uL Eos # (Auto) (0.0-0.7) K/uL Baso # (Auto) (0.0-0.1) K/uL Nucleated RBC % /100WBC Nucleated RBCs # K/uL INR APTT (18.6-31.3) SEC Sodium (136-148) mmol/L Potassium (3.5-5.1) mmol/L Chloride (98-107) mmol/L Carbon Dioxide (21.0-32.0) mmol/L BUN (7.0-18.0) mg/dL Creatinine (0.8-1.3) mg/dL Est Cr Clr Drug Dosing mL/min Estimated GFR (MDRD) ml/min Glucose (74-106) mg/dL Calcium (8.5-10.1) mg/dL Total Bilirubin (0.2-1.0) mg/dL AST (15-37) IU/L ALT (14-63) IU/L Alkaline Phosphatase (46-116) U/L Troponin I (0.000-0.056) ng/mL Total Protein (6.4-8.2) g/dL Albumin (3.4-5.0) g/dL Globulin (2.6-4.0) g/dL Albumin/Globulin Ratio (0.9-1.6) Urine Color DARK YELLOW Urine Appearance CLEAR Urine pH 7.0 (5.0-8.0) Ur Specific [place] 1.020 (1.001-1.035) Urine Protein 30 H (NEGATIVE) mg/dL Urine Glucose (UA) NEGATIVE (NEGATIVE) mg/dL Urine Ketones TRACE H (NEGATIVE) mg/dL Urine Occult Blood NEGATIVE (NEGATIVE) Urine Nitrite NEGATIVE (NEGATIVE) Urine Bilirubin NEGATIVE (NEGATIVE) Urine Urobilinogen >=8.0 H (<2.0) EU/dL Ur Leukocyte Esterase NEGATIVE (NEGATIVE) Urine RBC 0-2 (0-2/HPF) Urine WBC 0-1 (0-5/HPF) Ur Epithelial Cells RARE (NONE-FEW) Urine Bacteria RARE (NEGATIVE) Digoxin (0.9-2.0) ng/mL SARS-CoV-2 RNA (KAR) NEGATIVE (NEGATIVE) Blood Type AB POSITIVE Antibody Screen NEGATIVE Result Diagrams: 02/29/20 11:50 02/29/20 11:50 Sepsis Event Note - Evaluation Sepsis Screening Result: No Definite Risk - Focused Exam Vital Signs: Vital Signs Temp Pulse Pulse Resp BP BP Pulse Ox 02/29/20 14:30 79 16 152/77 H 100 02/29/20 14:19 77 142/82 H 02/29/20 13:59 83 18 123/78 100 02/29/20 13:53 87 02/29/20 12:42 98 16 127/65 100 02/29/20 11:59 35.9 C L 157 H 18 130/101 H 96 Problem List Initiated/Reviewed/Updated: Yes Orders Last 24hrs: Active Orders 24 hr Category Date Time Status Patient Status [ADT] Routine ADT 02/29/20 14:48 Active Cardiac Monitoring [RC] . DIRECTED Care 02/29/20 12:11 Active EKG Documentation Completion [RC] AM Care 02/29/20 12:11 Active Pulse Oximetry [RC] ASDIRECTED Care 02/29/20 12:11 Active Diltiazem [Cardizem] 100 mg Med 02/29/20 12:30 Active Sodium Chloride 0.9% [Normal Saline] 100 ml IV NOW Diltiazem [Cardizem] 100 mg Med 02/29/20 12:45 Active Sodium Chloride 0.9% [Normal Saline] 100 ml IV NOW Sodium Chloride 0.9% [Saline Flush] Med 02/29/20 12:11 Active 10 ml FLUSH ASDIRECTED PRN Sodium Chloride 0.9% [Saline Flush] Med 02/29/20 12:11 Active 2.5 ml FLUSH ASDIRECTED PRN Saline Lock Insert [OM.PC] Stat Oth 02/29/20 12:11 Ordered Medication Orders Diltiazem HCl 100 mg/ Sodium (Chloride) 100 mls @ 5 mls/hr IV NOW [place]; Protocol Last Admin: 02/29/20 12:33 Dose: 5 mg/hr, 5 mls/hr Documented by: JAMIE Diltiazem HCl 100 mg/ Sodium (Chloride) 100 mls @ 5 mls/hr IV NOW [facility]; Protocol Sodium Chloride (Saline Flush) 10 ml FLUSH ASDIRECTED PRN PRN Reason: Keep Vein Open Last Admin: 02/29/20 12:30 Dose: 10 ml Documented by: JAMIE Sodium Chloride (Saline Flush) 2.5 ml FLUSH ASDIRECTED PRN PRN Reason: Keep Vein Open Last Admin: 02/29/20 12:30 Dose: 2.5 ml Documented by: JAMIE Assessment/Plan Comment:: Assessment and Plan: 1. Atrial fibrillation with RVR: - Admit to med/surg. Patient on telemetry. He was weaned off of Cardizem drip in the ER and is currently rate controlled. Will resume home dose of digoxin and order IV diltiazem 10 mg q3h prn HR > 120 bpm. - Patient reports being on Pradaxa for anti-coagulation in the past, however, self-discontinued this when he noticed his stools were darker. Will hold anti- coagulation for now secondary to #2. 2. Dark stools: - Hemoccult stool test done in ER was negative. Will recheck Hgb with AM labs and monitor for dark stools. Vital signs stable. Will order IV PPI 40 mg qd. Patient may require outpatient colonoscopy. 3. LAINA: - Received 1 L IV NS bolus in ER. Will monitor with AM labs. - Will hold ACEI for now. 4. Transaminitis: - Hepatitis C positive. Patient reports being in the process of following-up with infectious disease. 5. DVT prophylaxis: - SCD's for now secondary to #2. 6. Past medical history of HTN, non-ischemic cardiomyopathy, chronic pain and peripheral neuropathy: - Continue home medications with the exception of ACEI secondary to #3.
[2020-02-29] MEDS ORDERED: Acetaminophen 325 MG Tab PO PRN (15:22)
[2020-02-29] MEDS ORDERED: oxyCODONE 5 MG Tab PO PRN (15:30)
[2020-02-29] MEDS ORDERED: Diltiazem 25 MG/5 ML SDV IVPUSH PRN (15:32)
[2020-02-29] MEDS ORDERED: FLU Vacc QV2020-21(65YR UP)/PF 240 MCG/0.7 ML Syringe IM ONE (16:30)
[2020-02-29] MEDS ORDERED: Melatonin 3 MG Tab PO PRN (17:00)
[2020-02-29] MEDS: Carvedilol 6.25 MG Tab PO SCH (20:18)
[2020-02-29] MEDS ORDERED: Zolpidem 10 MG PO SCH (21:00)
[2020-02-29] MEDS ORDERED: rOPINIRole 0.5 MG Tab PO SCH (21:00)
[2020-02-29] MEDS: oxyCODONE 5 MG Tab PO PRN (23:27)
[2020-03-01] MEDS: Polyethylene Glycol 3350 Powder 17 GM Packet PO PRN ×2 (02:00→12:46)
[2020-03-01] MEDS: oxyCODONE 5 MG Tab PO PRN ×3 (05:24→13:58)
[2020-03-01 05:51] LABS: BLOOD UREA NITROGEN,BUN 23 mg/dL (7.0-18.0); CARBON DIOXIDE,CO2 24.8 mmol/L (21.0-32.0); CHLORIDE,CL 100 mmol/L (98-107); GLUCOSE RANDOM 99 mg/dL (74-106); POTASSIUM,K 3.8 mmol/L (3.5-5.1); SODIUM,NA 134 mmol/L (136-148)
[2020-03-01] MEDS ORDERED: Potassium Chloride 20 MEQ Tab.ER PO ONE (07:24)
[2020-03-01] MEDS ORDERED: Magnesium Sulfate/Water 2 GM/50 ML BAG IV ONE (07:45)
[2020-03-01] MEDS ORDERED: Magnesium Sulfate/Water 2 GM/50 ML Premix Bag IV ONE (08:00)
--- NOTE | 2020-03-01 08:26 | PCM.PN ---
- General Info Date of Service: 03/01/20 Subjective Update: Reports pain in legs. No bowel movements overnight. Denies any SOB or chest pain. - Patient Data Vitals - Most Recent: Last Vital Signs Temp 36.4 C 03/01/20 07:35 Pulse 96 03/01/20 07:35 Resp 18 03/01/20 07:35 BP 136/93 H 03/01/20 07:35 Pulse Ox 99 03/01/20 07:35 Weight - Most Recent: 85.366 kg I&O - Last 24 Hours: Intake & Output 02/29/20 03/01/20 03/01/20 22:59 06:59 14:59 Intake Total 740 Output Total 650 Balance 90 Lab Results Last 24 Hours: Laboratory Results - last 24 hr 02/29/20 02/29/20 02/29/20 Range/Units 11:50 11:50 11:50 WBC 8.67 (4.0-11.0) K/uL RBC 4.93 (4.50-5.90) M/uL Hgb 17.8 H (13.0-17.0) g/dL Hct 50.6 H (38.0-50.0) % MCV 102.6 H (80.0-98.0) fL MCH 36.1 H (27.0-32.0) pg MCHC 35.2 (31.0-37.0) g/dL RDW Std Deviation 48.9 (28.0-62.0) fl RDW Coeff of Eileen 13 (11.0-15.0) % Plt Count 154 (150-400) K/uL MPV 10.90 (7.40-12.00) fL Neut % (Auto) 55.9 (48.0-80.0) % Lymph % (Auto) 32.2 (16.0-40.0) % Benzie % (Auto) 10.3 (0.0-15.0) % Eos % (Auto) 1.0 (0.0-7.0) % Baso % (Auto) 0.6 (0.0-1.5) % Neut # (Auto) 4.9 (1.4-5.7) K/uL Lymph # (Auto) 2.8 H (0.6-2.4) K/uL Benzie # (Auto) 0.9 H (0.0-0.8) K/uL Eos # (Auto) 0.1 (0.0-0.7) K/uL Baso # (Auto) 0.1 (0.0-0.1) K/uL Nucleated RBC % 0.0 /100WBC Nucleated RBCs # 0 K/uL INR 1.28 APTT 25.7 (18.6-31.3) SEC Sodium 135 L (136-148) mmol/L Potassium 4.0 (3.5-5.1) mmol/L Chloride 100 (98-107) mmol/L Carbon Dioxide 22.9 (21.0-32.0) mmol/L BUN 21 H (7.0-18.0) mg/dL Creatinine 1.4 H (0.8-1.3) mg/dL Est Cr Clr Drug Dosing 54.66 mL/min Estimated GFR (MDRD) 50.2 ml/min Glucose 149 H (74-106) mg/dL Calcium 9.7 (8.5-10.1) mg/dL Magnesium (1.8-2.4) mg/dL Total Bilirubin 1.9 H (0.2-1.0) mg/dL AST 69 H (15-37) IU/L ALT 100 H (14-63) IU/L Alkaline Phosphatase 65 (46-116) U/L Troponin I < 0.050 (0.000-0.056) ng/mL Total Protein 8.5 H (6.4-8.2) g/dL Albumin 4.3 (3.4-5.0) g/dL Globulin 4.2 H (2.6-4.0) g/dL Albumin/Globulin Ratio 1.0 (0.9-1.6) Urine Color Urine Appearance Urine pH (5.0-8.0) Ur Specific [place] (1.001-1.035) Urine Protein (NEGATIVE) mg/dL Urine Glucose (UA) (NEGATIVE) mg/dL Urine Ketones (NEGATIVE) mg/dL Urine Occult Blood (NEGATIVE) Urine Nitrite (NEGATIVE) Urine Bilirubin (NEGATIVE) Urine Urobilinogen (<2.0) EU/dL Ur Leukocyte Esterase (NEGATIVE) Urine RBC (0-2/HPF) Urine WBC (0-5/HPF) Ur Epithelial Cells (NONE-FEW) Urine Bacteria (NEGATIVE) Digoxin < 0.2 L (0.9-2.0) ng/mL SARS-CoV-2 RNA (KAR) (NEGATIVE) Blood Type Antibody Screen 02/29/20 02/29/20 02/29/20 Range/Units 12:30 12:45 14:24 WBC (4.0-11.0) K/uL RBC (4.50-5.90) M/uL Hgb (13.0-17.0) g/dL Hct (38.0-50.0) % MCV (80.0-98.0) fL MCH (27.0-32.0) pg MCHC (31.0-37.0) g/dL RDW Std Deviation (28.0-62.0) fl RDW Coeff of Eileen (11.0-15.0) % Plt Count (150-400) K/uL MPV (7.40-12.00) fL Neut % (Auto) (48.0-80.0) % Lymph % (Auto) (16.0-40.0) % Benzie % (Auto) (0.0-15.0) % Eos % (Auto) (0.0-7.0) % Baso % (Auto) (0.0-1.5) % Neut # (Auto) (1.4-5.7) K/uL Lymph # (Auto) (0.6-2.4) K/uL Benzie # (Auto) (0.0-0.8) K/uL Eos # (Auto) (0.0-0.7) K/uL Baso # (Auto) (0.0-0.1) K/uL Nucleated RBC % /100WBC Nucleated RBCs # K/uL INR APTT (18.6-31.3) SEC Sodium (136-148) mmol/L Potassium (3.5-5.1) mmol/L Chloride (98-107) mmol/L Carbon Dioxide (21.0-32.0) mmol/L BUN (7.0-18.0) mg/dL Creatinine (0.8-1.3) mg/dL Est Cr Clr Drug Dosing mL/min Estimated GFR (MDRD) ml/min Glucose (74-106) mg/dL Calcium (8.5-10.1) mg/dL Magnesium (1.8-2.4) mg/dL Total Bilirubin (0.2-1.0) mg/dL AST (15-37) IU/L ALT (14-63) IU/L Alkaline Phosphatase (46-116) U/L Troponin I (0.000-0.056) ng/mL Total Protein (6.4-8.2) g/dL Albumin (3.4-5.0) g/dL Globulin (2.6-4.0) g/dL Albumin/Globulin Ratio (0.9-1.6) Urine Color DARK YELLOW Urine Appearance CLEAR Urine pH 7.0 (5.0-8.0) Ur Specific [place] 1.020 (1.001-1.035) Urine Protein 30 H (NEGATIVE) mg/dL Urine Glucose (UA) NEGATIVE (NEGATIVE) mg/dL Urine Ketones TRACE H (NEGATIVE) mg/dL Urine Occult Blood NEGATIVE (NEGATIVE) Urine Nitrite NEGATIVE (NEGATIVE) Urine Bilirubin NEGATIVE (NEGATIVE) Urine Urobilinogen >=8.0 H (<2.0) EU/dL Ur Leukocyte Esterase NEGATIVE (NEGATIVE) Urine RBC 0-2 (0-2/HPF) Urine WBC 0-1 (0-5/HPF) Ur Epithelial Cells RARE (NONE-FEW) Urine Bacteria RARE (NEGATIVE) Digoxin (0.9-2.0) ng/mL SARS-CoV-2 RNA (KAR) NEGATIVE (NEGATIVE) Blood Type AB POSITIVE Antibody Screen NEGATIVE 02/29/20 03/01/20 03/01/20 Range/Units 15:25 04:43 04:43 WBC 5.72 (4.0-11.0) K/uL RBC 3.82 L (4.50-5.90) M/uL Hgb 13.6 (13.0-17.0) g/dL Hct 39.4 (38.0-50.0) % MCV 103.1 H (80.0-98.0) fL MCH 35.6 H (27.0-32.0) pg MCHC 34.5 (31.0-37.0) g/dL RDW Std Deviation 48.6 (28.0-62.0) fl RDW Coeff of Eileen 13 (11.0-15.0) % Plt Count 114 L (150-400) K/uL MPV 11.10 (7.40-12.00) fL Neut % (Auto) 36.2 L (48.0-80.0) % Lymph % (Auto) 52.4 H (16.0-40.0) % Benzie % (Auto) 9.3 (0.0-15.0) % Eos % (Auto) 1.6 (0.0-7.0) % Baso % (Auto) 0.5 (0.0-1.5) % Neut # (Auto) 2.1 (1.4-5.7) K/uL Lymph # (Auto) 3.0 H (0.6-2.4) K/uL Benzie # (Auto) 0.5 (0.0-0.8) K/uL Eos # (Auto) 0.1 (0.0-0.7) K/uL Baso # (Auto) 0.0 (0.0-0.1) K/uL Nucleated RBC % 0.0 /100WBC Nucleated RBCs # 0 K/uL INR APTT (18.6-31.3) SEC Sodium 134 L (136-148) mmol/L Potassium 3.8 (3.5-5.1) mmol/L Chloride 100 (98-107) mmol/L Carbon Dioxide 24.8 (21.0-32.0) mmol/L BUN 23 H (7.0-18.0) mg/dL Creatinine 1.2 (0.8-1.3) mg/dL Est Cr Clr Drug Dosing 61.88 mL/min Estimated GFR (MDRD) > 60.0 ml/min Glucose 99 (74-106) mg/dL Calcium 8.7 (8.5-10.1) mg/dL Magnesium 2.0 1.6 L (1.8-2.4) mg/dL Total Bilirubin 1.3 H (0.2-1.0) mg/dL AST 57 H (15-37) IU/L ALT 82 H (14-63) IU/L Alkaline Phosphatase 47 (46-116) U/L Troponin I (0.000-0.056) ng/mL Total Protein 6.5 (6.4-8.2) g/dL Albumin 3.3 L (3.4-5.0) g/dL Globulin 3.2 (2.6-4.0) g/dL Albumin/Globulin Ratio 1.0 (0.9-1.6) Urine Color Urine Appearance Urine pH (5.0-8.0) Ur Specific [place] (1.001-1.035) Urine Protein (NEGATIVE) mg/dL Urine Glucose (UA) (NEGATIVE) mg/dL Urine Ketones (NEGATIVE) mg/dL Urine Occult Blood (NEGATIVE) Urine Nitrite (NEGATIVE) Urine Bilirubin (NEGATIVE) Urine Urobilinogen (<2.0) EU/dL Ur Leukocyte Esterase (NEGATIVE) Urine RBC (0-2/HPF) Urine WBC (0-5/HPF) Ur Epithelial Cells (NONE-FEW) Urine Bacteria (NEGATIVE) Digoxin (0.9-2.0) ng/mL SARS-CoV-2 RNA (KAR) (NEGATIVE) Blood Type Antibody Screen Med Orders - Current: Current Medications Acetaminophen (Tylenol) 650 mg PO Q4H PRN PRN Reason: Pain (Mild 1-3)/fever Last Admin: 02/29/20 21:39 Dose: 650 mg Documented by: Carvedilol (Coreg) 6.25 mg PO BID LAKIA Last Admin: 02/29/20 20:18 Dose: 6.25 mg Documented by: Digoxin (Lanoxin) 250 mcg PO DAILY LAKIA Diltiazem HCl (Diltiazem) 10 mg IVPUSH Q3H PRN PRN Reason: Other Pantoprazole Sodium 40 mg/ (Sodium Chloride) 10 mls @ 300 mls/hr IV BID LAKIA Magnesium Sulfate (Magnesium Sulfate In Water Premix) 2 gm in 50 mls @ 50 mls/hr IV ONETIME ONE Stop: 03/01/20 08:44 Melatonin (Melatonin) 3 mg PO BEDTIME PRN PRN Reason: Insomnia Last Admin: 02/29/20 21:39 Dose: 3 mg Documented by: Oxycodone HCl (Oxycodone) 10 mg PO Q4H PRN PRN Reason: Pain Last Admin: 03/01/20 05:24 Dose: 10 mg Documented by: Alpha Lipoic Acid [ Alpha Lipoic Acid] 600 Mg 1 each PO DAILY [facility] Juan Manuel/Vit B12/Folic Acid/Vit B6 [Folic Acid-Vit B6-Vit B12 1 each PO DAILY [facility] Zolpidem 10 Mg 1 each PO BEDTIME LAKIA Last Admin: 02/29/20 21:26 Dose: Not Given Documented by: Polyethylene Glycol (Miralax) 17 gm PO DAILY PRN PRN Reason: Constipation Last Admin: 03/01/20 02:00 Dose: 17 gm Documented by: Ropinirole HCl (Requip) 0.5 mg PO BEDTIME LAKIA Last Admin: 02/29/20 20:18 Dose: 0.5 mg Documented by: Sodium Chloride (Saline Flush) 10 ml FLUSH ASDIRECTED PRN PRN Reason: Keep Vein Open Last Admin: 02/29/20 12:30 Dose: 10 ml Documented by: Sodium Chloride (Saline Flush) 2.5 ml FLUSH ASDIRECTED PRN PRN Reason: Keep Vein Open Last Admin: 02/29/20 12:30 Dose: 2.5 ml Documented by: Discontinued Medications Carvedilol (Coreg) 6.25 mg PO ONETIME ONE Stop: 02/29/20 13:34 Last Admin: 02/29/20 14:19 Dose: 6.25 mg Documented by: Digoxin (Lanoxin) 500 mcg IVPUSH ONETIME ONE Stop: 02/29/20 13:20 Last Admin: 02/29/20 13:53 Dose: 500 mcg Documented by: Digoxin (Lanoxin) 250,000 mcg PO DAILY [facility]AKIA Diltiazem HCl (Diltiazem) 20 mg IVPUSH ONETIME ONE Stop: 02/29/20 12:17 Last Admin: 02/29/20 12:31 Dose: 20 mg Documented by: Sodium Chloride (Normal Saline) 1,000 mls @ 999 mls/hr IV .Bolus ONE Stop: 02/29/20 13:11 Last Admin: 02/29/20 12:29 Dose: 999 mls/hr Documented by: Pantoprazole Sodium 80 mg/ (Sodium Chloride) 20 mls @ 420 mls/hr IVPUSH ONETIME ONE Stop: 02/29/20 12:17 Last Admin: 02/29/20 12:30 Dose: 420 mls/hr Documented by: Diltiazem HCl 100 mg/ Sodium (Chloride) 100 mls @ 5 mls/hr IV NOW LAKIA; Protocol Last Admin: 02/29/20 12:33 Dose: 5 mg/hr, 5 mls/hr Documented by: Sodium Chloride (Normal Saline) Confirm Administered Dose 100 mls @ as directed .ROUTE .STK-MED ONE Stop: 02/29/20 12:27 Last Admin: 02/29/20 12:31 Dose: Not Given Documented by: Diltiazem HCl 100 mg/ Sodium (Chloride) 100 mls @ 5 mls/hr IV NOW LAKIA; Protocol Pantoprazole Sodium 40 mg/ (Sodium Chloride) 10 mls @ 300 mls/hr IV DAILY LAKIA Influenza Virus Vaccine (Fluzone High-Dose Quad 2019-) 240 mcg IM .ONCE ONE Stop: 02/29/20 16:31 Neomycin/Polymyxin/Bacitracin (Triple Antibiotic Oint) 1 gm TOP ONETIME ONE Stop: 02/29/20 15:04 Last Admin: 02/29/20 17:16 Dose: Not Given Documented by: Ondansetron HCl (Zofran) 4 mg IVPUSH ONETIME ONE Stop: 02/29/20 12:16 Last Admin: 02/29/20 12:31 Dose: 4 mg Documented by: Oxycodone HCl (Oxycodone) 10 mg PO Q6HR PRN PRN Reason: Pain Last Admin: 02/29/20 17:00 Dose: 10 mg Documented by: Potassium Chloride (Klor-Con M20) 40 meq PO ONETIME ONE Stop: 03/01/20 07:25 - Exam General: Alert, Oriented, Cooperative, No Acute Distress Lungs: Clear to Auscultation, Normal Respiratory Effort Cardiovascular: Regular Rate, Irregular Rhythm GI/Abdominal Exam: Normal Bowel Sounds, Soft, Non-Tender, No Distention Extremities: Normal Inspection, No Pedal Edema Sepsis Event Note - Evaluation Sepsis Screening Result: No Definite Risk - Focused Exam Vital Signs: Vital Signs Temp Pulse Resp BP Pulse Ox 03/01/20 07:35 36.4 C 96 18 136/93 H 99 03/01/20 04:00 36.9 C 86 17 130/74 98 02/29/20 23:32 36.4 C 88 16 132/73 99 - Problem List & Annotations (1) Atrial fibrillation with rapid ventricular response SNOMED Code(s): 949118110229227 Code(s): I48.91 - UNSPECIFIED ATRIAL FIBRILLATION Status: Acute Current Visit: Yes (2) Hepatitis C SNOMED Code(s): 28980298 Code(s): B19.20 - UNSPECIFIED VIRAL HEPATITIS C WITHOUT HEPATIC COMA Status: Acute Current Visit: Yes (3) HTN (hypertension) SNOMED Code(s): 56093623 Code(s): I10 - ESSENTIAL (PRIMARY) HYPERTENSION Status: Acute Current Visit: Yes (4) Cardiomyopathy SNOMED Code(s): 16879708 Code(s): I42.9 - CARDIOMYOPATHY, UNSPECIFIED Status: Acute Current Visit: Yes (5) Chronic pain SNOMED Code(s): 92805305 Code(s): G89.29 - OTHER CHRONIC PAIN Status: Acute Current Visit: No Qualifiers: Chronic pain type: other chronic pain Qualified Code(s): G89.29 - Other chronic pain (6) Peripheral neuropathic pain SNOMED Code(s): 687852604 Code(s): M79.2 - NEURALGIA AND NEURITIS, UNSPECIFIED Status: Acute Current Visit: No - Problem List Review Problem List Initiated/Reviewed/Updated: Yes - My Orders Last 24 Hours: My Active Orders 02/29/20 Lunch Heart Healthy Diet [DIET] 02/29/20 15:22 Antiembolic Devices [RC] PER UNIT ROUTINE Oxygen Therapy [RC] PRN Up ad Laverne [RC] ASDIRECTED VTE/DVT Education [RC] PER UNIT ROUTINE Vital Signs [RC] Q4H Acetaminophen [TylenoL] 650 mg PO Q4H PRN Sequential Compression Device [OM.PC] Per Unit Routine 02/29/20 15:32 Diltiazem 10 mg IVPUSH Q3H PRN 02/29/20 15:47 Telemetry Monitoring [Cardiac Monitoring] [RC] Q8H 02/29/20 16:25 Code Status [Resuscitation Status] Routine 02/29/20 17:00 Melatonin 3 mg PO BEDTIME PRN 02/29/20 21:00 Patient's Own Medication [Ptom] 1 each PO BEDTIME carvediloL [Coreg] 6.25 mg PO BID rOPINIRole [Requip] 0.5 mg PO BEDTIME 03/01/20 09:00 Digoxin [Lanoxin] 250 mcg PO DAILY Pantoprazole [ProTONIX IV] 40 mg Sodium Chloride 0.9% [Normal Saline] 10 ml IV BID Patient's Own Medication [Ptom] 1 each PO DAILY Patient's Own Medication [Ptom] 1 each PO DAILY - Plan Plan:: Assessment and Plan: 1. Atrial fibrillation with RVR: - Patient on telemetry and is rate controlled now. Continue home dose of digoxin. IV diltiazem 10 mg q3h prn HR > 120 bpm. - Patient reports being on Pradaxa for anti-coagulation in the past, however, self-discontinued this when he noticed his stools were darker. Will hold anti- coagulation for now secondary to #2. 2. Dark stools: - FOBT done in ER was negative. Will check Hgb again allison this afternoon as it was noted to decrease overnight, however, patient did receive IV fluids yesterday. Will order hoemoccult stool test. Continue IV PPI BID. Patient has not had a bowel movement overnight. 3. LAINA, resolved. 4. Transaminitis: - Hepatitis C positive. Patient reports being in the process of following-up with infectious disease. 5. DVT prophylaxis: - SCD's for now secondary to #2. 6. Past medical history of HTN, non-ischemic cardiomyopathy, chronic pain and peripheral neuropathy: - Continue home medications with the exception of ACEI secondary to #3.
[2020-03-01] MEDS: Carvedilol 6.25 MG Tab PO SCH (08:38)
[2020-03-01] MEDS ORDERED: CAL PO SCH (09:00)
[2020-03-01] MEDS ORDERED: Alpha Lipoic Acid [Alpha Lipoic Acid] 600 MG PO SCH (09:00)
[2020-03-01] MEDS ORDERED: Pantoprazole 40 MG in Sodium Chloride 0.9% 10 ML IV SCH ×4 (09:00)
[2020-03-01] MEDS ORDERED: VIT B6 PO SCH (09:00)
[2020-03-01] MEDS ORDERED: FOLIC ACID PO SCH (09:00)
[2020-03-01] MEDS ORDERED: VIT B12 PO SCH (09:00)
[2020-03-01] MEDS ORDERED: Digoxin 250 MCG Tab PO SCH ×2 (09:00)
[2020-03-01] MEDS ORDERED: Docusate Sodium 100 MG Cap PO SCH (10:30)
[2020-03-01] MEDS ORDERED: Magnesium Hydroxide 400 MG/5 ML Susp 30 ML Cup PO SCH (10:30)
--- NOTE | 2020-03-01 17:41 | PCM.DCSUM1 ---
<Yordan Mckenzie - Last Filed: 03/01/20 17:43> Discharge Summary - Hospital Course Free Text/Narrative:: 70-year-old male admitted for atrial fibrillation with RVR. He has a PMH of HTN, non-ischemic cardiomyopathy, peripheral neuropathy, chronic pain and hepatitis C. Patient has a history of medication non-compliance. Patient was started on IV cardizem drip while in the ER and was successfully weaned off and remained in rate control. He reports a history of being on Pradaxa in the past but self- discontinued this medication approximately 6 months ago after noticing his stools were darker. He did report having a large "black tarry stool" prior to being hospitalized. Hemoccult stool test was negative and patient's hemoglobin level remained stable. For hepatitis C, patient reports that he is in the process of setting up appointment with infectious disease in [place], [place]. For his chronic peripheral neuropathy, a referral was also provided with neurology. Patient advised to follow-up with his PCP on discharge. Advised patient that he may need to be restarted on Pradaxa in the outpatient setting when following-up with PCP. Patient was also counselled on the importance of being compliant with his medications. Patient was discharged in stable condition. - Discharge Data Discharge Date: 03/01/20 Discharge Disposition: Home, Self-Care 01 Condition: Stable - Referral to Home Health Primary Care Physician: PCP None - Discharge Diagnosis/Problem(s) (1) Atrial fibrillation with rapid ventricular response SNOMED Code(s): 130005440139756 ICD Code: I48.91 - UNSPECIFIED ATRIAL FIBRILLATION Status: Acute (2) Hepatitis C SNOMED Code(s): 96791950 ICD Code: B19.20 - UNSPECIFIED VIRAL HEPATITIS C WITHOUT HEPATIC COMA Status: Acute (3) HTN (hypertension) SNOMED Code(s): 68275975 ICD Code: I10 - ESSENTIAL (PRIMARY) HYPERTENSION Status: Acute (4) Cardiomyopathy SNOMED Code(s): 20449349 ICD Code: I42.9 - CARDIOMYOPATHY, UNSPECIFIED Status: Acute (5) Chronic pain SNOMED Code(s): 55789749 ICD Code: G89.29 - OTHER CHRONIC PAIN Status: Acute Qualifiers: Chronic pain type: other chronic pain Qualified Code(s): G89.29 - Other chronic pain (6) Peripheral neuropathic pain SNOMED Code(s): 426380412 ICD Code: M79.2 - NEURALGIA AND NEURITIS, UNSPECIFIED Status: Acute - Patient Instructions Diet: Heart Healthy Diet Activity: As Tolerated Notify Provider of: Fever, Increased Pain, Swelling and Redness, Drainage, [place] sea and/or Vomiting - Discharge Plan *PRESCRIPTION DRUG MONITORING PROGRAM REVIEWED*: Not Applicable *COPY OF PRESCRIPTION DRUG MONITORING REPORT IN PATIENT EFRAÍN: Not Applicable Prescriptions/Med Rec: carvediloL [Carvedilol] 6.25 mg PO BIDMEALS 30 Days #60 DULoxetine [Cymbalta] 60 mg PO DAILY 30 Days #60 cap Digoxin 250 mcg PO DAILY 30 Days #30 lisinopriL [Lisinopril] 5 mg PO DAILY 30 Days #30 tab Home Medications: Home Meds Alpha Lipoic Acid 600 mg PO DAILY 02/29/20 [History] Juan Manuel/Vit B12/Folic Acid/Vit B6 [Folic Acid-Vit B6-Vit B12 Tab] 1 tab PO DAILY 02/29/20 [History] Ondansetron [Zofran ODT] 4 mg PO Q6HR PRN 02/29/20 [History] Zolpidem [Ambien] 10 mg PO BEDTIME 02/29/20 [History] oxyCODONE HCl [Oxycodone HCL] 10 mg PO Q4H PRN 02/29/20 [History] rOPINIRole HCl [Requip] 0.5 mg PO BEDTIME 02/29/20 [History] DULoxetine [Cymbalta] 60 mg PO DAILY 30 Days #60 cap 03/01/20 [Rx] Digoxin 250 mcg PO DAILY 30 Days #30 03/01/20 [Rx] Lidocaine/Prilocaine [EMLA Crm] 1 applic TOP TID PRN 03/01/20 [History] carvediloL [Carvedilol] 6.25 mg PO BIDMEALS 30 Days #60 03/01/20 [Rx] lisinopriL [Lisinopril] 5 mg PO DAILY 30 Days #30 tab 03/01/20 [Rx] Oxygen Therapy Mode: Room Air Patient Handouts: Cardiomyopathy, Adult, Duloxetine delayed-release capsules, Peripheral Neuropathy, Carvedilol tablets, Lisinopril tablets, Digoxin tablets or capsules, Atrial Fibrillation, [id number] Referrals: Kira Maldonado MD [Physician] - 03/16/20 1:30 pm (Please arrive 15mins early, bring ID, insurance information and own mask.) Jose Carlos Cruz MD [Resident] - 03/09/20 9:30 am (Please arrive 15mins early, bring ID, insurance info and own mask.) - Discharge Summary/Plan Comment DC Time >30 min.: No - Patient Data Vitals - Most Recent: Last Vital Signs Temp 36.3 C 03/01/20 11: Pulse 91 03/01/20 11:20 Resp 18 03/01/20 11:20 BP 107/68 03/01/20 11: Pulse Ox 97 03/01/20 11:20 Weight - Most Recent: 85.366 kg I&O - Last 24 hours: Intake & Output 03/01/20 03/01/20 03/01/20 06:59 14:59 22:59 Intake Total 070 714 9792 Output Total 650 460 Balance 90 400 920 Lab Results - Last 24 hrs: Laboratory Results - last 24 hr 03/01/20 03/01/20 03/01/20 Range/Units 04:43 04:43 14:09 WBC 5.72 (4.0-11.0) K/uL RBC 3.82 L (4.50-5.90) M/uL Hgb 13.6 14.4 (13.0-17.0) g/dL Hct 39.4 41.7 (38.0-50.0) % MCV 103.1 H (80.0-98.0) fL MCH 35.6 H (27.0-32.0) pg MCHC 34.5 (31.0-37.0) g/dL RDW Std Deviation 48.6 (28.0-62.0) fl RDW Coeff of Eileen 13 (11.0-15.0) % Plt Count 114 L (150-400) K/uL MPV 11.10 (7.40-12.00) fL Neut % (Auto) 36.2 L (48.0-80.0) % Lymph % (Auto) 52.4 H (16.0-40.0) % [place] % (Auto) 9.3 (0.0-15.0) % Eos % (Auto) 1.6 (0.0-7.0) % Baso % (Auto) 0.5 (0.0-1.5) % Neut # (Auto) 2.1 (1.4-5.7) K/uL Lymph # (Auto) 3.0 H (0.6-2.4) K/uL [place] # (Auto) 0.5 (0.0-0.8) K/uL Eos # (Auto) 0.1 (0.0-0.7) K/uL Baso # (Auto) 0.0 (0.0-0.1) K/uL Nucleated RBC % 0.0 /100WBC Nucleated RBCs # 0 K/uL Sodium 134 L (136-148) mmol/L Potassium 3.8 (3.5-5.1) mmol/L Chloride 100 (98-107) mmol/L Carbon Dioxide 24.8 (21.0-32.0) mmol/L BUN 23 H (7.0-18.0) mg/dL Creatinine 1.2 (0.8-1.3) mg/dL Est Cr Clr Drug Dosing 61.88 mL/min Estimated GFR (MDRD) > 60.0 ml/min Glucose 99 (74-106) mg/dL Calcium 8.7 (8.5-10.1) mg/dL Magnesium 1.6 L (1.8-2.4) mg/dL Total Bilirubin 1.3 H (0.2-1.0) mg/dL AST 57 H (15-37) IU/L ALT 82 H (14-63) IU/L Alkaline Phosphatase 47 (46-116) U/L Total Protein 6.5 (6.4-8.2) g/dL Albumin 3.3 L (3.4-5.0) g/dL Globulin 3.2 (2.6-4.0) g/dL Albumin/Globulin Ratio 1.0 (0.9-1.6) LETI Results - Last 24 hrs: Microbiology 03/01/20 13:45 Stool Occult Blood (LETI) - Final Stool / Feces NEGATIVE OCCULT BLOOD REFERENCE RANGE: NEGATIVE Med Orders - Current: Current Medications Acetaminophen (Tylenol) 650 mg PO Q4H PRN PRN Reason: Pain (Mild 1-3)/fever Last Admin: 02/29/20 21:39 Dose: 650 mg Documented by: Carvedilol (Coreg) 6.25 mg PO BID [facility] Last Admin: 03/01/20 08:38 Dose: 6.25 mg Documented by: Digoxin (Lanoxin) 250 mcg PO DAILY [facility] Last Admin: 03/01/20 08:36 Dose: 250 mcg Documented by: Diltiazem HCl (Diltiazem) 10 mg IVPUSH Q3H PRN PRN Reason: Other Docusate Sodium (Colace) 100 mg PO DAILY [facility] Last Admin: 03/01/20 10:55 Dose: 100 mg Documented by: Pantoprazole Sodium 40 mg/ (Sodium Chloride) 10 mls @ 300 mls/hr IV BID [facility] Last Admin: 03/01/20 08:38 Dose: 300 mls/hr Documented by: Lisinopril (Prinivil) 5 mg PO DAILY [facility] Magnesium Hydroxide (Milk Of Magnesia) 30 ml PO DAILY [facility] Last Admin: 03/01/20 10:55 Dose: 30 ml Documented by: Melatonin (Melatonin) 3 mg PO BEDTIME PRN PRN Reason: Insomnia Last Admin: 02/29/20 21:39 Dose: 3 mg Documented by: Oxycodone HCl (Oxycodone) 10 mg PO Q4H PRN PRN Reason: Pain Last Admin: 03/01/20 13:58 Dose: 10 mg Documented by: Alpha Lipoic Acid [ Alpha Lipoic Acid] 600 Mg 1 each PO DAILY [facility] Last Admin: 03/01/20 09:15 Dose: Not Given Documented by: Juan Manuel/Vit B12/Folic Acid/Vit B6 [Folic Acid-Vit B6-Vit B12 1 each PO DAILY [facility] Last Admin: 03/01/20 09:15 Dose: Not Given Documented by: Zolpidem 10 Mg 1 each PO BEDTIME [facility] Last Admin: 02/29/20 21:26 Dose: Not Given Documented by: Polyethylene Glycol (Miralax) 17 gm PO DAILY PRN PRN Reason: Constipation Last Admin: 03/01/20 12:46 Dose: 17 gm Documented by: Ropinirole HCl (Requip) 0.5 mg PO BEDTIME [facility] Last Admin: 02/29/20 20:18 Dose: 0.5 mg Documented by: Sodium Chloride (Saline Flush) 10 ml FLUSH ASDIRECTED PRN PRN Reason: Keep Vein Open Last Admin: 02/29/20 12:30 Dose: 10 ml Documented by: Sodium Chloride (Saline Flush) 2.5 ml FLUSH ASDIRECTED PRN PRN Reason: Keep Vein Open Last Admin: 02/29/20 12:30 Dose: 2.5 ml Documented by: Discontinued Medications Carvedilol (Coreg) 6.25 mg PO ONETIME ONE Stop: 02/29/20 13:34 Last Admin: 02/29/20 14:19 Dose: 6.25 mg Documented by: Digoxin (Lanoxin) 500 mcg IVPUSH ONETIME ONE Stop: 02/29/20 13:20 Last Admin: 02/29/20 13:53 Dose: 500 mcg Documented by: Digoxin (Lanoxin) 250,000 mcg PO DAILY [facility] Diltiazem HCl (Diltiazem) 20 mg IVPUSH ONETIME ONE Stop: 02/29/20 12:17 Last Admin: 02/29/20 12:31 Dose: 20 mg Documented by: Sodium Chloride (Normal Saline) 1,000 mls @ 999 mls/hr IV .Bolus ONE Stop: 02/29/20 13:11 Last Admin: 02/29/20 12:29 Dose: 999 mls/hr Documented by: Pantoprazole Sodium 80 mg/ (Sodium Chloride) 20 mls @ 420 mls/hr IVPUSH ONETIME ONE Stop: 02/29/20 12:17 Last Admin: 02/29/20 12:30 Dose: 420 mls/hr Documented by: Diltiazem HCl 100 mg/ Sodium (Chloride) 100 mls @ 5 mls/hr IV NOW [facility]; Protocol Last Admin: 02/29/20 12:33 Dose: 5 mg/hr, 5 mls/hr Documented by: Sodium Chloride (Normal Saline) Confirm Administered Dose 100 mls @ as directed .ROUTE .STK-MED ONE Stop: 02/29/20 12:27 Last Admin: 02/29/20 12:31 Dose: Not Given Documented by: Diltiazem HCl 100 mg/ Sodium (Chloride) 100 mls @ 5 mls/hr IV NOW [facility]; Protocol Pantoprazole Sodium 40 mg/ (Sodium Chloride) 10 mls @ 300 mls/hr IV DAILY [facility] Magnesium Sulfate (Magnesium Sulfate In Water Premix) 2 gm in 50 mls @ 50 mls/hr IV ONETIME ONE Stop: 03/01/20 08:44 Last Admin: 03/01/20 08:48 Dose: 50 mls/hr Documented by: Influenza Virus Vaccine (Fluzone High-Dose Quad ) 240 mcg IM .ONCE ONE Stop: 02/29/20 16:31 Neomycin/Polymyxin/Bacitracin (Triple Antibiotic Oint) 1 gm TOP ONETIME ONE Stop: 02/29/20 15:04 Last Admin: 02/29/20 17:16 Dose: Not Given Documented by: Ondansetron HCl (Zofran) 4 mg IVPUSH ONETIME ONE Stop: 02/29/20 12:16 Last Admin: 02/29/20 12:31 Dose: 4 mg Documented by: Oxycodone HCl (Oxycodone) 10 mg PO Q6HR PRN PRN Reason: Pain Last Admin: 02/29/20 17:00 Dose: 10 mg Documented by: Potassium Chloride (Klor-Con M20) 40 meq PO ONETIME ONE Stop: 03/01/20 07:25 Last Admin: 03/01/20 08:37 Dose: 40 meq Documented by: <Anurag Damon - Last Filed: 03/03/20 15:35> Discharge Summary - Referral to Home Health Primary Care Physician: PCP None - Patient Data Vitals - Most Recent: Last Vital Signs Temp 36.2 C 03/01/20 17:56 Pulse 86 03/01/20 17:56 Resp 16 03/01/20 17:56 BP 107/73 03/01/20 17:56 Pulse Ox 98 03/01/20 17:56 Med Orders - Current: Current Medications Discontinued Medications Acetaminophen (Tylenol) 650 mg PO Q4H PRN PRN Reason: Pain (Mild 1-3)/fever Last Admin: 02/29/20 21:39 Dose: 650 mg Documented by: Carvedilol (Coreg) 6.25 mg PO ONETIME ONE Stop: 02/29/20 13:34 Last Admin: 02/29/20 14:19 Dose: 6.25 mg Documented by: Carvedilol (Coreg) 6.25 mg PO BID [facility] Last Admin: 03/01/20 08:38 Dose: 6.25 mg Documented by: Digoxin (Lanoxin) 500 mcg IVPUSH ONETIME ONE Stop: 02/29/20 13:20 Last Admin: 02/29/20 13:53 Dose: 500 mcg Documented by: Digoxin (Lanoxin) 250,000 mcg PO DAILY [facility] Digoxin (Lanoxin) 250 mcg PO DAILY [facility] Last Admin: 03/01/20 08:36 Dose: 250 mcg Documented by: Diltiazem HCl (Diltiazem) 20 mg IVPUSH ONETIME ONE Stop: 02/29/20 12:17 Last Admin: 02/29/20 12:31 Dose: 20 mg Documented by: Diltiazem HCl (Diltiazem) 10 mg IVPUSH Q3H PRN PRN Reason: Other Docusate Sodium (Colace) 100 mg PO DAILY [facility] Last Admin: 03/01/20 10:55 Dose: 100 mg Documented by: Sodium Chloride (Normal Saline) 1,000 mls @ 999 mls/hr IV .Bolus ONE Stop: 02/29/20 13:11 Last Admin: 02/29/20 12:29 Dose: 999 mls/hr Documented by: Pantoprazole Sodium 80 mg/ (Sodium Chloride) 20 mls @ 420 mls/hr IVPUSH ONETIME ONE Stop: 02/29/20 12:17 Last Admin: 02/29/20 12:30 Dose: 420 mls/hr Documented by: Diltiazem HCl 100 mg/ Sodium (Chloride) 100 mls @ 5 mls/hr IV NOW [facility]; Protocol Last Admin: 02/29/20 12:33 Dose: 5 mg/hr, 5 mls/hr Documented by: Sodium Chloride (Normal Saline) Confirm Administered Dose 100 mls @ as directed .ROUTE .STK-MED ONE Stop: 02/29/20 12:27 Last Admin: 02/29/20 12:31 Dose: Not Given Documented by: Diltiazem HCl 100 mg/ Sodium (Chloride) 100 mls @ 5 mls/hr IV NOW [facility]; Protocol Pantoprazole Sodium 40 mg/ (Sodium Chloride) 10 mls @ 300 mls/hr IV DAILY [facility] Pantoprazole Sodium 40 mg/ (Sodium Chloride) 10 mls @ 300 mls/hr IV BID [facility] Last Admin: 03/01/20 08:38 Dose: 300 mls/hr Documented by: Magnesium Sulfate (Magnesium Sulfate In Water Premix) 2 gm in 50 mls @ 50 mls/hr IV ONETIME ONE Stop: 03/01/20 08:44 Last Admin: 03/01/20 08:48 Dose: 50 mls/hr Documented by: Influenza Virus Vaccine (Fluzone High-Dose Quad ) 240 mcg IM .ONCE ONE Stop: 02/29/20 16:31 Last Admin: 03/01/20 19:58 Dose: Not Given Documented by: Lisinopril (Prinivil) 5 mg PO DAILY [facility] Magnesium Hydroxide (Milk Of Magnesia) 30 ml PO DAILY [facility] Last Admin: 03/01/20 10:55 Dose: 30 ml Documented by: Melatonin (Melatonin) 3 mg PO BEDTIME PRN PRN Reason: Insomnia Last Admin: 02/29/20 21:39 Dose: 3 mg Documented by: Neomycin/Polymyxin/Bacitracin (Triple Antibiotic Oint) 1 gm TOP ONETIME ONE Stop: 02/29/20 15:04 Last Admin: 02/29/20 17:16 Dose: Not Given Documented by: Ondansetron HCl (Zofran) 4 mg IVPUSH ONETIME ONE Stop: 02/29/20 12:16 Last Admin: 02/29/20 12:31 Dose: 4 mg Documented by: Oxycodone HCl (Oxycodone) 10 mg PO Q6HR PRN PRN Reason: Pain Last Admin: 02/29/20 17:00 Dose: 10 mg Documented by: Oxycodone HCl (Oxycodone) 10 mg PO Q4H PRN PRN Reason: Pain Last Admin: 03/01/20 13:58 Dose: 10 mg Documented by: Alpha Lipoic Acid [ Alpha Lipoic Acid] 600 Mg 1 each PO DAILY [facility] Last Admin: 03/01/20 09:15 Dose: Not Given Documented by: Juan Manuel/Vit B12/Folic Acid/Vit B6 [Folic Acid-Vit B6-Vit B12 1 each PO DAILY [facility] Last Admin: 03/01/20 09:15 Dose: Not Given Documented by: Zolpidem 10 Mg 1 each PO BEDTIME [facility] Last Admin: 02/29/20 21:26 Dose: Not Given Documented by: Polyethylene Glycol (Miralax) 17 gm PO DAILY PRN PRN Reason: Constipation Last Admin: 03/01/20 12:46 Dose: 17 gm Documented by: Potassium Chloride (Klor-Con M20) 40 meq PO ONETIME ONE Stop: 03/01/20 07:25 Last Admin: 03/01/20 08:37 Dose: 40 meq Documented by: Ropinirole HCl (Requip) 0.5 mg PO BEDTIME [facility] Last Admin: 02/29/20 20:18 Dose: 0.5 mg Documented by: Sodium Chloride (Saline Flush) 10 ml FLUSH ASDIRECTED PRN PRN Reason: Keep Vein Open Last Admin: 02/29/20 12:30 Dose: 10 ml Documented by: Sodium Chloride (Saline Flush) 2.5 ml FLUSH ASDIRECTED PRN PRN Reason: Keep Vein Open Last Admin: 02/29/20 12:30 Dose: 2.5 ml Documented by: - Free Text/Narrative Note: I have seen and evaluated the patient. I have discussed findings and treatment plan with resident. I agree with the assessment and plan in the following note.
[2020-03-01 17:57] VITALS: BP 107/73; PULSE 86
[2020-03-02] MEDS ORDERED: Lisinopril 5 MG Tab PO SCH (09:00)
== END 2020-03-01 18:30 | disposition home or self-care (01) ==
LOC: MW.ED 11:46 → MW.MS 14:48
PROVIDERS: ADMIT Internal Medicine; ATTEND Internal Medicine
DX: I48.91 Unspecified atrial fibrillation (principal); B19.20 Unspecified viral hepatitis C without hepatic coma; I11.9 Hypertensive heart disease without heart failure; I43 Cardiomyopathy in diseases classified elsewhere; G89.29 Other chronic pain; Z79.899 Other long term (current) drug therapy; Z20.828 Contact with and (suspected) exposure to other viral communicable diseases; E66.9 Obesity, unspecified; R19.5 Other fecal abnormalities; G62.9 Polyneuropathy, unspecified; N17.9 Acute kidney failure, unspecified
CPT/HCPCS: 36415; 71045; 80053; 80162; 81001; 82272; 83735; 84484; 85014; 85018; 85025; 85610; 85730; 86850; 86900; 86901; 93005; A9270; C9113; J1160; J2405; J3475; J3490; J7030; J7050; U0002

== ENCOUNTER 2020-05-03 10:14 | Emergency (ER) | payer MEDICAID, MEDICARE ==
[2020-05-03] MEDS ORDERED: Sodium Chloride 0.9% 1,000 ML IV ONE (10:27)
[2020-05-03] MEDS ORDERED: Ondansetron 4 MG/2 ML SDV IVPUSH ONE (10:27)
[2020-05-03] MEDS ORDERED: Lisinopril 5 MG Tab PO ONE (10:31)
[2020-05-03] MEDS ORDERED: Carvedilol 6.25 MG Tab PO ONE (10:31)
[2020-05-03] MEDS ORDERED: Digoxin 250 MCG Tab PO ONE (10:31)
--- NOTE | 2020-05-03 10:31 | EDM.PDOC ---
ED HPI GENERAL MEDICAL PROBLEM - General Chief Complaint: Gastrointestinal Problem Stated Complaint: vomiting Time Seen by Provider: 05/03/20 10:21 Source of Information: Reports: Patient History Limitations: Reports: No Limitations - History of Present Illness INITIAL COMMENTS - FREE TEXT/NARRATIVE: Is a 70-year-old male who presents today for lower abdominal pain as well as v omiting. Patient states for the past 3 days not able tolerate anything by mouth. He is able to keep down about he says 32 ounces over the past 3 days. Patient also is not had a bowel movement in the past 3 days. Patient denies any urinary problems chest pain fever chills or other complaints. Patient also reports he has not taken his blood pressure medication in the past few days due to him vomiting and has also denies any recent travels. abdomen Pain Score (Numeric/FACES): 8 - Related Data Allergies Allergy/AdvReac Type Severity Reaction Status Date / Time No Known Allergies Allergy Verified 05/03/20 10:24 Home Meds: Home Meds Alpha Lipoic Acid 600 mg PO DAILY 02/29/20 [History] Juan Manuel/Vit B12/Folic Acid/Vit B6 [Folic Acid-Vit B6-Vit B12 Tab] 1 tab PO DAILY 02/29/20 [History] Ondansetron [Zofran ODT] 4 mg PO Q6HR PRN 02/29/20 [History] Zolpidem [Ambien] 10 mg PO BEDTIME PRN 02/29/20 [History] oxyCODONE HCl [Oxycodone HCL] 10 mg PO Q4H PRN 02/29/20 [History] rOPINIRole HCl [Requip] 0.5 mg PO BEDTIME 02/29/20 [History] DULoxetine [Cymbalta] 60 mg PO DAILY 30 Days #60 cap 03/01/20 [Rx] Digoxin 250 mcg PO DAILY 30 Days #30 03/01/20 [Rx] Lidocaine/Prilocaine [EMLA Crm] 1 applic TOP TID PRN 03/01/20 [History] carvediloL [Carvedilol] 6.25 mg PO BIDMEALS 30 Days #60 03/01/20 [Rx] lisinopriL [Lisinopril] 5 mg PO DAILY 30 Days #30 tab 03/01/20 [Rx] Ondansetron [Zofran ODT] 4 mg PO Q6H PRN 5 Days #20 tab.dis 05/03/20 [Rx] oxyCODONE HCl/Acetaminophen [Percocet 7.5-325 mg Tablet] 1 each PO Q6HR PRN 5 Days #20 tablet 05/03/20 [Rx] Past Medical History HEENT History: Reports: None Cardiovascular History: Reports: Afib, Hypertension, NC Respiratory History: Reports: None Gastrointestinal History: Reports: Hepatitis Genitourinary History: Reports: None Musculoskeletal History: Reports: Back Pain, Chronic Neurological History: Reports: Neuropathy, Peripheral Psychiatric History: Reports: Depression Endocrine/Metabolic History: Reports: Obesity/BMI 30+, Other (See Below) Other Endocrine/Metabolic History: pre diabetic Hematologic History: Reports: None Immunologic History: Reports: None Oncologic (Cancer) History: Reports: None Dermatologic History: Other Dermatologic History: rosacea - Infectious Disease History Infectious Disease History: Reports: Chicken Pox, Hepatitis C, Measles, Mumps - Past Surgical History Head Surgeries/Procedures: Reports: None HEENT Surgical History: Reports: Oral Surgery Cardiovascular Surgical History: Reports: None GI Surgical History: Reports: Colonoscopy Male Surgical History: Reports: None Endocrine Surgical History: Reports: None Neurological Surgical History: Reports: None Musculoskeletal Surgical History: Reports: None Oncologic Surgical History: Reports: None Social & Family History - Family History Family Medical History: No Pertinent Family History Cardiac: Reports: NC Endocrine/Metabolic: Reports: Diabetes, type II - Caffeine Use Caffeine Use: Reports: None ED ROS GENERAL - Review of Systems Review Of Systems: See Below Constitutional: Reports: No Symptoms HEENT: Reports: No Symptoms Respiratory: Reports: No Symptoms Cardiovascular: Reports: No Symptoms Endocrine: Reports: No Symptoms GI/Abdominal: Reports: Abdominal Pain, Nausea, Vomiting : Reports: No Symptoms Musculoskeletal: Reports: No Symptoms Skin: Reports: No Symptoms Neurological: Reports: No Symptoms Psychiatric: Reports: No Symptoms Hematologic/Lymphatic: Reports: No Symptoms Immunologic: Reports: No Symptoms ED EXAM, GENERAL - Physical Exam Exam: See Below Exam Limited By: No Limitations General Appearance: Alert, WD/WN Respiratory/Chest: No Respiratory Distress, Lungs Clear, Normal Breath Sounds Cardiovascular: Normal Peripheral Pulses, Regular Rate, Rhythm, No Edema GI/Abdominal: Normal Bowel Sounds, Soft, Non-Tender, No Distention Extremities: Normal Range of Motion Neurological: Alert, Oriented, CN II-XII Intact, Normal Cognition, Normal Gait #1 Interpretation EKG Date: 05/03/20 Time: 10:38 Rhythm: A-Fib Rate (Beats/Min): 107 ST-T: Normal Course - Vital Signs Last Recorded V/S: Last Vital Signs Temp 96.5 F L 05/03/20 10:18 Pulse 112 H 05/03/20 11:25 Resp 17 05/03/20 11:25 BP 123/97 H 05/03/20 11:25 Pulse Ox 98 05/03/20 11:25 - Orders/Labs/Meds Orders: Active Orders 24 hr Category Date Time Status EKG 12 Lead [EKG Documentation Completion] [RC] STAT Care 05/03/20 10:33 Active Sodium Chloride 0.9% [Normal Saline] 1,000 ml Med 05/03/20 11:15 Active IV ASDIRECTED Medication Orders Sodium Chloride (Normal Saline) 1,000 mls @ 1,000 mls/hr IV ASDIRECTED LAKIA Last Admin: 05/03/20 11:17 Dose: 1,000 mls/hr Documented by: DELORIS Labs: Laboratory Tests 05/03/20 05/03/20 05/03/20 Range/Units 10:20 10:20 10:20 WBC 11.09 H (4.0-11.0) K/uL RBC 4.73 (4.50-5.90) M/uL Hgb 17.2 H (13.0-17.0) g/dL Hct 47.7 (38.0-50.0) % MCV 100.8 H (80.0-98.0) fL MCH 36.4 H (27.0-32.0) pg MCHC 36.1 (31.0-37.0) g/dL RDW Std Deviation 50.5 (28.0-62.0) fl RDW Coeff of Eileen 14 (11.0-15.0) % Plt Count 165 (150-400) K/uL MPV 10.70 (7.40-12.00) fL Neut % (Auto) 60.6 (48.0-80.0) % Lymph % (Auto) 28.3 (16.0-40.0) % [place] % (Auto) 10.0 (0.0-15.0) % Eos % (Auto) 0.8 (0.0-7.0) % Baso % (Auto) 0.3 (0.0-1.5) % Neut # (Auto) 6.7 H (1.4-5.7) K/uL Lymph # (Auto) 3.1 H (0.6-2.4) K/uL [place] # (Auto) 1.1 H (0.0-0.8) K/uL Eos # (Auto) 0.1 (0.0-0.7) K/uL Baso # (Auto) 0.0 (0.0-0.1) K/uL Nucleated RBC % 0.0 /100WBC Nucleated RBCs # 0 K/uL Lactate 2.5 H* (0.20-2.00) mmol/L Sodium 134 L (136-148) mmol/L Potassium 3.8 (3.5-5.1) mmol/L Chloride 97 L (98-107) mmol/L Carbon Dioxide 21.7 (21.0-32.0) mmol/L BUN 13 (7.0-18.0) mg/dL Creatinine 1.3 (0.8-1.3) mg/dL Est Cr Clr Drug Dosing 57.12 mL/min Estimated GFR (MDRD) 54.7 ml/min Glucose 156 H (74-106) mg/dL Calcium 9.7 (8.5-10.1) mg/dL Phosphorus 3.2 (2.6-4.7) mg/dL Magnesium 1.7 L (1.8-2.4) mg/dL Total Bilirubin 1.5 H (0.2-1.0) mg/dL AST 68 H (15-37) IU/L ALT 118 H (14-63) IU/L Alkaline Phosphatase 65 (46-116) U/L Creatine Kinase 25 L (26-308) U/L Total Protein 8.7 H (6.4-8.2) g/dL Albumin 4.1 (3.4-5.0) g/dL Globulin [employer] Albumin/Globulin Ratio [employer] Lipase 109 (73-393) U/L Meds: Medications Generic Name Dose Route Start Last Admin Trade Name Freq PRN Reason Stop Dose Admin Sodium Chloride 1,000 mls @ 1,000 mls/hr 05/03/20 11:15 05/03/20 11:17 Normal Saline IV 1,000 mls/hr ASDIRECTED LAKIA Administration Discontinued Medications Generic Name Dose Route Start Last Admin Trade Name Blu PRCali Reason Stop Dose Admin Carvedilol 6.25 mg 05/03/20 10:31 05/03/20 10:42 Coreg PO 05/03/20 10:32 6.25 mg ONETIME ONE Administration Digoxin 250 mcg 05/03/20 10:31 05/03/20 10:41 Lanoxin PO 05/03/20 10:32 250 mcg ONETIME ONE Administration Diphenhydramine HCl 25 mg 05/03/20 11:51 05/03/20 13:11 Benadryl IVPUSH 05/03/20 11:52 25 mg ONETIME ONE Administration Diphenhydramine HCl Confirm 05/03/20 11:51 05/03/20 13:12 Benadryl Administered 05/03/20 11:52 Not Given Dose 50 mg .ROUTE .STK-MED ONE Sodium Chloride 1,000 mls @ 999 mls/hr 05/03/20 10:27 05/03/20 10:30 Normal Saline IV 05/03/20 11:27 999 mls/hr .BOLUS ONE Administration Iopamidol 100 ml 05/03/20 13:10 05/03/20 13:10 Isovue Multipack-370 (76%) IVPUSH 05/03/20 13:11 100 ml ONETIME STA Administration Lisinopril 5 mg 05/03/20 10:31 05/03/20 10:41 Prinivil PO 05/03/20 10:32 5 mg ONETIME ONE Administration Metoclopramide HCl 10 mg 05/03/20 11:51 05/03/20 13:11 Reglan IVPUSH 05/03/20 11:52 10 mg ONETIME ONE Administration Metoclopramide HCl Confirm 05/03/20 11:52 05/03/20 13:11 Reglan Administered 05/03/20 11:53 Not Given Dose 10 mg .ROUTE .STK-MED ONE Ondansetron HCl 4 mg 05/03/20 10:27 05/03/20 10:31 Zofran IVPUSH 05/03/20 10:28 4 mg ONETIME ONE Administration Oxycodone/Acetaminophen 1 tab 05/03/20 11:13 05/03/20 11:21 Percocet 325-5 Mg PO 05/03/20 11:14 1 tab ONETIME ONE Administration - Re-Assessments/Exams Free Text/Narrative Re-Assessment/Exam: 05/03/20 13:14 Was given his A. fib ligament injection and carvedilol heart rate has been in the low 90s. Patient was given Reglan and Benadryl unable to tolerate p.o. Patient also states that he has neuropathy and is out of his narcotics and is back in contact with Dr. Will provide a 3-day prescription for patient. Patient is stable for discharge at this time. Departure - Departure Time of Disposition: 13:15 Disposition: Home, Self-Care 01 Condition: Good Clinical Impression: Gastroenteritis - Discharge Information *PRESCRIPTION DRUG MONITORING PROGRAM REVIEWED*: Not Applicable *COPY OF PRESCRIPTION DRUG MONITORING REPORT IN PATIENT EFRAÍN: Not Applicable Prescriptions: oxyCODONE HCl/Acetaminophen [Percocet 7.5-325 mg Tablet] 1 each PO Q6HR PRN 5 Days #20 tablet PRN Reason: Pain (Severe 7-10) Ondansetron [Zofran ODT] 4 mg PO Q6H PRN 5 Days #20 tab.dis PRN Reason: Vomiting Instructions: Viral Gastroenteritis, Adult Referrals: PCP,None [Primary Care Provider] - Forms: ED Department Discharge Additional Instructions: The following information is given to patients seen in the emergency department who are being discharged to home. This information is to outline your options for follow-up care. We provide all patients seen in our emergency department with a follow-up referral. The need for follow-up, as well as the timing and circumstances, are variable depending upon the specifics of your emergency department visit. If you don't have a primary care physician on staff, we will provide you with a referral. We always advise you to contact your personal physician following an emergency department visit to inform them of the circumstance of the visit and for follow-up with them and/or the need for any referrals to a consulting specialist. The emergency department will also refer you to a specialist when appropriate. This referral assures that you have the opportunity for follow-up care with a specialist. All of these measure are taken in an effort to provide you with optimal care, which includes your follow-up. Under all circumstances we always encourage you to contact your private physician who remains a resource for coordinating your care. When calling for follow-up care, please make the office aware that this follow-up is from your recent emergency room visit. If for any reason you are refused follow-up, please contact the [facility] Emergency Department at and asked to speak to the emergency department charge nurse. Please follow up with your primary care physician. If you do not have a primary care physician, see below: [facility] [address] [place] [id number] [facility] [address] [place] [address] Follow-up with your primary care physician if you have any concerning complaints please return to the ED. Sepsis Event Note (ED) - Evaluation Sepsis Screening Result: No Definite Risk - Focused Exam Vital Signs: Vital Signs Temp Pulse Pulse Resp BP BP Pulse Ox 05/03/20 11:25 112 H 17 123/97 H 98 05/03/20 11:11 94 17 148/89 H 98 05/03/20 10:50 90 17 150/95 H 99 05/03/20 10:42 109 H 155/90 H 05/03/20 10:41 109 H 155/90 H 05/03/20 10:18 96.5 F L 109 H 18 155/90 H 100 - My Orders Last 24 Hours: My Active Orders 05/03/20 10:33 EKG 12 Lead [EKG Documentation Completion] [RC] STAT 05/03/20 11:15 Sodium Chloride 0.9% [Normal Saline] 1,000 ml IV ASDIRECTED - Assessment/Plan Last 24 Hours: My Active Orders 05/03/20 10:33 EKG 12 Lead [EKG Documentation Completion] [RC] STAT 05/03/20 11:15 Sodium Chloride 0.9% [Normal Saline] 1,000 ml IV ASDIRECTED Assessment:: 70-year-old male who presents today for nausea vomiting and lower abdominal pain. Patient has not had a bowel movement in 3 days and also states he cannot really tolerate p.o. Will give IV fluids labs and likely CT scan.
[2020-05-03 11:05] LABS: BLOOD UREA NITROGEN,BUN 13 mg/dL (7.0-18.0); CARBON DIOXIDE,CO2 21.7 mmol/L (21.0-32.0); CHLORIDE,CL 97 mmol/L (98-107); GLUCOSE RANDOM 156 mg/dL (74-106); LIPASE 109 U/L (73-393); POTASSIUM,K 3.8 mmol/L (3.5-5.1); SODIUM,NA 134 mmol/L (136-148)
[2020-05-03] MEDS ORDERED: Acetaminophen/oxyCODONE 325-5 MG Tab PO ONE (11:13)
[2020-05-03] MEDS ORDERED: Sodium Chloride 0.9% 1,000 ML IV SCH (11:15)
[2020-05-03] MEDS ORDERED: diphenhydrAMINE 50 MG/ML SDV ONE (11:51)
[2020-05-03] MEDS ORDERED: diphenhydrAMINE 50 MG/ML SDV IVPUSH ONE (11:51)
[2020-05-03] MEDS ORDERED: Metoclopramide 10 MG/2 ML SDV IVPUSH ONE (11:51)
[2020-05-03] MEDS ORDERED: Metoclopramide 10 MG/2 ML SDV ONE (11:52)
--- NOTE | 2020-05-03 12:10 | CR ---
INDICATION: Weakness and nausea COMPARISON: 02/29/2020 TECHNIQUE: Portable AP upright study FINDINGS: TUBES AND LINES: None. HEART AND MEDIASTINUM: The heart size is normal. The mediastinal contour appears normal for patient age. LUNGS AND PLEURAL SPACES: Hyperinflated but otherwise unremarkable appearing lungs. Hyperinflation may be due to COPD which should be considered in the appropriate clinical setting.The pleural spaces are unremarkable. OSSEOUS STRUCTURES: Age-appropriate appearance. No acute focal finding. IMPRESSION: Hyperinflated but otherwise unremarkable appearing lungs without visible acute focal finding. Dictated by Galo Linda MD @ May 03 2020 12:07PM Signed by Dr. Galo Linda @ May 03 2020 12:09PM
--- NOTE | 2020-05-03 12:57 | CT ---
INDICATION: Lower abdominal pain. Nausea and vomiting COMPARISON: January 20, 2019 TECHNIQUE: CT examination of the abdomen and pelvis was performed following the uneventful intravenous administration of 100 cc of Isovue 370. Thin section axial images were obtained from the lung bases through the pubic symphysis. Oral contrast was not administered. Please note that all CT scans at this facility use dose modulation, iterative reconstruction, and/or weight-based dosing when appropriate to reduce radiation dose to as low as reasonably achievable. FINDINGS: LUNG BASES: The lung bases as visualized appear normal.The heart size is normal at the lung bases. LIVER/BILIARY SYSTEM:The liver is normal in size and configuration. There is no focal mass and there is no intra- or extra hepatic biliary ductal dilatation.The gall bladder appears normal. ADRENALS: Normal KIDNEYS, URETERS and BLADDER:The kidneys appear normal. No visible mass, calculus or hydronephrosis. The ureters and bladder as visualized appear normal. SPLEEN:Normal appearance. PANCREAS: Appears normal. RETROPERITONEUM and MESENTERY: There is no mass, adenopathy or aortic aneurysm. Atherosclerotic vascular calcification GASTROINTESTINAL SYSTEM: There are prominent loops of fluid-filled bowel primary this cecum, ascending colon and portions of the descending colon. No wall thickening or inflammatory change. No finding of mechanical obstruction. Findings are likely related to enteritis PELVIS: No mass, adenopathy or free fluid. OSSEOUS STRUCTURES and ABDOMINAL WALL: There is an age-appropriate appearance of the osseous structures.No significant abdominal wall defect. OTHER: No free fluid or free air. IMPRESSION: Prominent bowel loops without visible obstruction or perienteric inflammatory change. The findings are likely due to enteritis. Please note that all CT scans at this facility use dose modulation, iterative reconstruction, and/or weight-based dosing when appropriate to reduce radiation dose to as low as reasonably achievable. Dictated by Galo Linda MD @ May 03 2020 12:52PM Signed by Dr. Galo Linda @ May 03 2020 12:56PM
[2020-05-03] MEDS ORDERED: Iopamidol 755 MG/ML 500 ML Multipack Bottle IVPUSH STA (13:10)
[2020-05-03 14:51] VITALS: BP 123/88; PULSE 89
== END 2020-05-03 14:21 | disposition home or self-care (01) ==
LOC: MW.ED 10:14
DX: K52.9 Noninfective gastroenteritis and colitis, unspecified (principal); I48.91 Unspecified atrial fibrillation; I10 Essential (primary) hypertension; I25.2 Old myocardial infarction; F32.9 Major depressive disorder, single episode, unspecified; G62.9 Polyneuropathy, unspecified; E66.9 Obesity, unspecified; Z68.27 Body mass index [BMI] 27.0-27.9, adult; Z79.899 Other long term (current) drug therapy
CPT/HCPCS: 36415; 71045; 74177; 80053; 82550; 83605; 83690; 83735; 84100; 85025; 93005; 96361; 96374; 96375; 99284; A9270; J1200; J2405; J2765; J7030; Q9967; 93010

== ENCOUNTER 2020-07-02 13:06 | Emergency (ER) | payer MEDICARE ==
[2020-07-02] MEDS ORDERED: Sodium Chloride 0.9% 10 ML Syringe FLUSH PRN (13:22)
[2020-07-02] MEDS ORDERED: Sodium Chloride 0.9% 2.5 ML Syringe FLUSH PRN (13:22)
--- NOTE | 2020-07-02 13:22 | EDM.PDOC ---
ED HPI GENERAL MEDICAL PROBLEM - General Chief Complaint: General Stated Complaint: unk issue Time Seen by Provider: 07/02/20 13:21 Source of Information: Reports: Patient History Limitations: Reports: No Limitations - History of Present Illness INITIAL COMMENTS - FREE TEXT/NARRATIVE: 70-year-old male with history of Hep C, Afib on Pradaxa called the resident clinic on Thursday complaining of dizziness and passing dark stool. He is on Pradaxa for history of A. fib and started noticing black stools intermittently over the past 2 weeks. He was self doctoring and took himself off of Pradaxa 2 weeks ago due to black stools and the symptoms improved but today he started noticing black stools again. His dizziness was worse with posture, standing up, and is intermittent. 3 days ago he stood up too fast and felt dizzy and fell, he states he blacked out with LOC for about 30 seconds and hit the right side of his shoulder and right side of his face. He denies a headache and blurry vision and neck pain. He does note diffuse mild abdominal discomfort. He was instructed to come in for assessment. Today Dr. Dobbins called the patient again to check on him and told him to come in. ROS: A 10-point review of systems, other than pertinent positives and negatives as stated per HPI, is otherwise negative Past medical history: No additional pertinent history Past Surgical history: No additional pertinent history Social history: No additional pertinent history Family history: No additional pertinent history PHYSICAL EXAM General: AOx4, GCS = 15, No distress HEENT: dry mucous membrane, normocephalic, atraumatic Neck: supple, no meningismus, no Kernig or Brudzinski Cardiac: Tachycardia, regular rhythm Respiratory: CTAB, no crackles or rales, no wheezing Abdomen: Soft, Hemoccult negative, nontender, no rebound or guarding, nondistended, no pulsatile mass. Back: nontender Musculoskeletal: NVI distally, no deformity Neuro: No focal deficits, CN 2 - 12 WNL. feet Pain Score (Numeric/FACES): 8 - Related Data Allergies Allergy/AdvReac Type Severity Reaction Status Date / Time No Known Allergies Allergy Verified 07/02/20 13:17 Home Meds: Home Meds Alpha Lipoic Acid 600 mg PO DAILY 02/29/20 [History] Juan Manuel/Vit B12/Folic Acid/Vit B6 [Folic Acid-Vit B6-Vit B12 Tab] 1 tab PO DAILY 02/29/20 [History] Ondansetron [Zofran ODT] 4 mg PO Q6HR PRN 02/29/20 [History] Zolpidem [Ambien] 10 mg PO BEDTIME PRN 02/29/20 [History] oxyCODONE HCl [Oxycodone HCL] 10 mg PO Q4H PRN 02/29/20 [History] rOPINIRole HCl [Requip] 0.5 mg PO BEDTIME 02/29/20 [History] DULoxetine [Cymbalta] 60 mg PO DAILY 30 Days #60 cap 03/01/20 [Rx] Digoxin 250 mcg PO DAILY 30 Days #30 03/01/20 [Rx] Lidocaine/Prilocaine [EMLA Crm] 1 applic TOP TID PRN 03/01/20 [History] carvediloL [Carvedilol] 6.25 mg PO BIDMEALS 30 Days #60 03/01/20 [Rx] lisinopriL [Lisinopril] 5 mg PO DAILY 30 Days #30 tab 03/01/20 [Rx] Ondansetron [Zofran ODT] 4 mg PO Q6H PRN 5 Days #20 tab.dis 05/03/20 [Rx] oxyCODONE HCl/Acetaminophen [Percocet 7.5-325 mg Tablet] 1 each PO Q6HR PRN 5 Days #20 tablet 05/03/20 [Rx] Past Medical History HEENT History: Reports: None Cardiovascular History: Reports: Afib, Hypertension, CA Respiratory History: Reports: None Gastrointestinal History: Reports: Hepatitis Genitourinary History: Reports: None Musculoskeletal History: Reports: Back Pain, Chronic Neurological History: Reports: Neuropathy, Peripheral Psychiatric History: Reports: Depression Endocrine/Metabolic History: Reports: Obesity/BMI 30+, Other (See Below) Other Endocrine/Metabolic History: pre diabetic Hematologic History: Reports: None Immunologic History: Reports: None Oncologic (Cancer) History: Reports: None Dermatologic History: Other Dermatologic History: rosacea - Infectious Disease History Infectious Disease History: Reports: Chicken Pox, Hepatitis C, Measles, Mumps - Past Surgical History Head Surgeries/Procedures: Reports: None HEENT Surgical History: Reports: Oral Surgery Cardiovascular Surgical History: Reports: None Respiratory Surgical History: Reports: None GI Surgical History: Reports: Colonoscopy Male Surgical History: Reports: None Endocrine Surgical History: Reports: None Neurological Surgical History: Reports: None Musculoskeletal Surgical History: Reports: None Oncologic Surgical History: Reports: None Dermatological Surgical History: Reports: None Social & Family History - Family History Family Medical History: No Pertinent Family History Cardiac: Reports: CA Endocrine/Metabolic: Reports: Diabetes, type II - Caffeine Use Caffeine Use: Reports: None - Recreational Drug Use Recreational Drug Use: No ED ROS GENERAL - Review of Systems Review Of Systems: See Below (see dictation) ED EXAM, GENERAL - Physical Exam Exam: See Below (see dictation) #1 Interpretation EKG Interpretation Comments: Heart rate = 99 bpm, Afib, normal QRS interval, no STEMI. EKG and rhythm strip interpreted by me at 1348 Course - Vital Signs Last Recorded V/S: Last Vital Signs Temp 97 F 07/02/20 13:13 Pulse 110 H 07/02/20 14:31 Resp 16 07/02/20 14:31 BP 121/80 07/02/20 14:31 Pulse Ox 99 07/02/20 14:31 - Orders/Labs/Meds Orders: Active Orders 24 hr Category Date Time Status Cardiac Monitoring [RC] . DIRECTED Care 07/02/20 13:22 Active EKG Documentation Completion [RC] STAT Care 07/02/20 13:22 Active Pulse Oximetry [RC] ASDIRECTED Care 07/02/20 13:22 Active Sodium Chloride 0.9% [Saline Flush] Med 07/02/20 13:22 Active 10 ml FLUSH ASDIRECTED PRN Sodium Chloride 0.9% [Saline Flush] Med 07/02/20 13:22 Active 2.5 ml FLUSH ASDIRECTED PRN Saline Lock Insert [OM.PC] Stat Oth 07/02/20 13:22 Ordered Medication Orders Sodium Chloride (Saline Flush) 10 ml FLUSH ASDIRECTED PRN PRN Reason: Keep Vein Open Last Admin: 07/02/20 14:26 Dose: 10 ml Documented by: BRIA Sodium Chloride (Saline Flush) 2.5 ml FLUSH ASDIRECTED PRN PRN Reason: Keep Vein Open Last Admin: 07/02/20 14:26 Dose: 2.5 ml Documented by: BRIA Labs: Laboratory Tests 07/02/20 07/02/20 07/02/20 Range/Units 13:57 13:57 13:57 WBC 9.99 (4.0-11.0) K/uL RBC 4.57 (4.50-5.90) M/uL Hgb 17.4 H (13.0-17.0) g/dL Hct 48.0 (38.0-50.0) % MCV 105.0 H (80.0-98.0) fL MCH 38.1 H (27.0-32.0) pg MCHC 36.3 (31.0-37.0) g/dL RDW Std Deviation 52.3 (28.0-62.0) fl RDW Coeff of Eileen 14 (11.0-15.0) % Plt Count 167 (150-400) K/uL MPV 11.70 (7.40-12.00) fL Neut % (Auto) 64.8 (48.0-80.0) % Lymph % (Auto) 24.2 (16.0-40.0) % [place] % (Auto) 9.9 (0.0-15.0) % Eos % (Auto) 0.6 (0.0-7.0) % Baso % (Auto) 0.5 (0.0-1.5) % Neut # (Auto) 6.5 H (1.4-5.7) K/uL Lymph # (Auto) 2.4 (0.6-2.4) K/uL [place] # (Auto) 1.0 H (0.0-0.8) K/uL Eos # (Auto) 0.1 (0.0-0.7) K/uL Baso # (Auto) 0.1 (0.0-0.1) K/uL Nucleated RBC % 0.0 /100WBC Nucleated RBCs # 0 K/uL INR 1.20 Lactate 1.8 (0.20-2.00) mmol/L Sodium (136-148) mmol/L Potassium (3.5-5.1) mmol/L Chloride (98-107) mmol/L Carbon Dioxide (21.0-32.0) mmol/L BUN (7.0-18.0) mg/dL Creatinine (0.8-1.3) mg/dL Est Cr Clr Drug Dosing mL/min Estimated GFR (MDRD) ml/min Glucose (74-106) mg/dL Calcium (8.5-10.1) mg/dL Phosphorus (2.6-4.7) mg/dL Magnesium (1.8-2.4) mg/dL Total Bilirubin (0.2-1.0) mg/dL AST (15-37) IU/L ALT (14-63) IU/L Alkaline Phosphatase (46-116) U/L Troponin I (0.000-0.056) ng/mL Total Protein (6.4-8.2) g/dL Albumin (3.4-5.0) g/dL Globulin (2.6-4.0) g/dL Albumin/Globulin Ratio (0.9-1.6) Digoxin (0.9-2.0) ng/mL 07/02/20 07/02/20 Range/Units 15:00 15:00 WBC (4.0-11.0) K/uL RBC (4.50-5.90) M/uL Hgb (13.0-17.0) g/dL Hct (38.0-50.0) % MCV (80.0-98.0) fL MCH (27.0-32.0) pg MCHC (31.0-37.0) g/dL RDW Std Deviation (28.0-62.0) fl RDW Coeff of Eileen (11.0-15.0) % Plt Count (150-400) K/uL MPV (7.40-12.00) fL Neut % (Auto) (48.0-80.0) % Lymph % (Auto) (16.0-40.0) % [place] % (Auto) (0.0-15.0) % Eos % (Auto) (0.0-7.0) % Baso % (Auto) (0.0-1.5) % Neut # (Auto) (1.4-5.7) K/uL Lymph # (Auto) (0.6-2.4) K/uL [place] # (Auto) (0.0-0.8) K/uL Eos # (Auto) (0.0-0.7) K/uL Baso # (Auto) (0.0-0.1) K/uL Nucleated RBC % /100WBC Nucleated RBCs # K/uL INR Lactate (0.20-2.00) mmol/L Sodium 135 L (136-148) mmol/L Potassium 4.5 (3.5-5.1) mmol/L Chloride 102 (98-107) mmol/L Carbon Dioxide 20.9 L (21.0-32.0) mmol/L BUN 17 (7.0-18.0) mg/dL Creatinine 1.3 (0.8-1.3) mg/dL Est Cr Clr Drug Dosing 57.12 mL/min Estimated GFR (MDRD) 54.7 ml/min Glucose 111 H (74-106) mg/dL Calcium 9.1 (8.5-10.1) mg/dL Phosphorus 3.9 (2.6-4.7) mg/dL Magnesium 1.8 (1.8-2.4) mg/dL Total Bilirubin 1.2 H (0.2-1.0) mg/dL AST 77 H (15-37) IU/L ALT 122 H (14-63) IU/L Alkaline Phosphatase 61 (46-116) U/L Troponin I < 0.050 (0.000-0.056) ng/mL Total Protein 7.8 (6.4-8.2) g/dL Albumin 3.6 (3.4-5.0) g/dL Globulin 4.2 H (2.6-4.0) g/dL Albumin/Globulin Ratio 0.9 (0.9-1.6) Digoxin 1.2 (0.9-2.0) ng/mL Meds: Medications Generic Name Dose Route Start Last Admin Trade Name Freq PRN Reason Stop Dose Admin Sodium Chloride 10 ml 07/02/20 13:22 07/02/20 14:26 Saline Flush FLUSH 10 ml ASDIRECTED PRN Administration Keep Vein Open Sodium Chloride 2.5 ml 07/02/20 13:22 07/02/20 14:26 Saline Flush FLUSH 2.5 ml ASDIRECTED PRN Administration Keep Vein Open Discontinued Medications Generic Name Dose Route Start Last Admin Trade Name Blu PRN Reason Stop Dose Admin Famotidine 20 mg 07/02/20 14:18 07/02/20 14:26 Pepcid IVPUSH 07/02/20 14:19 20 mg ONETIME ONE Administration Lactated Ringer's 1,000 mls @ 999 mls/hr 07/02/20 14:18 07/02/20 14:27 Ringers, Lactated IV 07/02/20 15:18 999 mls/hr .BOLUS ONE Administration Pantoprazole Sodium 40 mg/ 10 mls @ 300 mls/hr 07/02/20 14:18 07/02/20 14:26 Sodium Chloride IV 07/02/20 14:19 300 mls/hr NOW ONE Administration - Re-Assessments/Exams Free Text/Narrative Re-Assessment/Exam: 07/02/20 14:20 Ordered IV fluids, Pepcid, Protonix IV. 07/02/20 16:31 After IV fluids in the ER, the patient improved and is currently stable for discharge. I performed a repeat exam and did not appreciate new abnormal findings. Patient exhibits normal vital signs and has a normal gait on road test. I advised the patient to return to the ER for reevaluation if symptoms wo rsened, including fever, worsening pain, or any other worrisome symptoms. I instructed the patient to follow up with their PCP within 2-3 days. Appointment has been made with Dr. Dobbins on Thursday at 10 AM. MEDICAL DECISION MAKING: I reviewed the patients past medical records, lab and radiographic findings. I discussed the case with the patient. My differential diagnosis included: Afib with RVR, GI bleed, bowel obstruction, electrolyte abnormality. Patient fell and hit his head on Thursday, CT head was unre markable, he is currently not on anticoagulation, due to his concern for rectal bleeding 2 weeks ago. Patient was self doctoring 2 weeks ago and took himself off of anticoagulation. Currently he is taking digoxin and is rate controlled. I instructed him to follow-up with Dr. Dobbins, with an appointment scheduled in 2 days at 10 AM. Patient initially complained of dark stool, he was Hemoccult negative and has stable hemoglobin, I do not suspect need for admission for colonoscopy. His lactate was unremarkable, I do not suspect ischemic bowel. CT head was unremarkable for skull fracture or ICH. CT abdomen pelvis did not reveal any signs of surgical abnormality. Departure - Departure Time of Disposition: 16:39 Disposition: Home, Self-Care 01 Condition: Good Clinical Impression: Noncompliance with medication regimen, Postural dizziness, History of atrial fibrillation - Discharge Information *PRESCRIPTION DRUG MONITORING PROGRAM REVIEWED*: Not Applicable *COPY OF PRESCRIPTION DRUG MONITORING REPORT IN PATIENT EFRAÍN: Not Applicable Referrals: Jose Carlos Cruz MD [Primary Care Provider] - 07/04/20 10:00 am Forms: ED Department Discharge Additional Instructions: The need for follow-up, as well as the timing and circumstances, are variable depending upon the specifics of your emergency department visit. If you don't have a primary care physician on staff, we will provide you with a referral. We always advise you to contact your personal physician following an emergency department visit to inform them of the circumstance of the visit and for follow-up with them and/or the need for any referrals to a consulting specialist. The emergency department will also refer you to a specialist when appropriate. This referral assures that you have the opportunity for follow-up care with a specialist. All of these measure are taken in an effort to provide you with optimal care, which includes your follow-up. Under all circumstances we always encourage you to contact your private physician who remains a resource for coordinating your care. When calling for follow-up care, please make the office aware that this follow-up is from your recent emergency room visit. If for any reason you are refused follow-up, please contact the [facility] Emergency Department at and asked to speak to the emergency department charge nurse. If you do not have a primary care doctor, please follow up with the clinics below within 3-5 days. [facility] - [facility] [address] [place] [id number] [facility] [address] [place] [id number] Sepsis Event Note (ED) - Evaluation Sepsis Screening Result: No Definite Risk - Focused Exam Vital Signs: Vital Signs Temp Pulse Resp BP Pulse Ox 07/02/20 14:31 110 H 16 121/80 99 07/02/20 13:13 97 F 98 16 157/70 H 98 - My Orders Last 24 Hours: My Active Orders 07/02/20 13:22 Cardiac Monitoring [RC] . DIRECTED EKG Documentation Completion [RC] STAT Pulse Oximetry [RC] ASDIRECTED Sodium Chloride 0.9% [Saline Flush] 10 ml FLUSH ASDIRECTED PRN Sodium Chloride 0.9% [Saline Flush] 2.5 ml FLUSH ASDIRECTED PRN Saline Lock Insert [OM.PC] Stat - Assessment/Plan Last 24 Hours: My Active Orders 07/02/20 13:22 Cardiac Monitoring [RC] . DIRECTED EKG Documentation Completion [RC] STAT Pulse Oximetry [RC] ASDIRECTED Sodium Chloride 0.9% [Saline Flush] 10 ml FLUSH ASDIRECTED PRN Sodium Chloride 0.9% [Saline Flush] 2.5 ml FLUSH ASDIRECTED PRN Saline Lock Insert [OM.PC] Stat
--- NOTE | 2020-07-02 13:59 | CR ---
INDICATION: Dizzy. TECHNIQUE: Chest, 2 images. COMPARISON: Chest radiograph 05/03/2020. FINDINGS: No focal consolidation, pleural effusion, or pneumothorax. Pulmonary hyperinflation. Normal heart size and pulmonary vascularity. The bones and upper abdomen are unremarkable. IMPRESSION: No acute cardiopulmonary findings. Dictated by Ivory Max MD @ Jul 02 2020 1:56PM Signed by Dr. Ivory Max @ Jul 02 2020 1:58PM
[2020-07-02] MEDS ORDERED: Lactated Ringers 1,000 ML IV ONE (14:18)
[2020-07-02] MEDS ORDERED: Pantoprazole 40 MG in Sodium Chloride 0.9% 10 ML IV ONE (14:18)
[2020-07-02] MEDS ORDERED: Famotidine 20 MG/2 ML SDV IVPUSH ONE (14:18)
--- NOTE | 2020-07-02 15:30 | CT ---
Indication: Syncope Technique: Volumetric multidetector CT images of the head were obtained without the administration of low osmolar intravenous contrast. Comparison: None available Findings: There is no intra-axial or extra-axial fluid collection. There is no mass effect or midline shift. There is age-related cortical atrophy with moderate sulcal widening and ex vacuo dilatation of the lateral ventricles. There are chronic small vessel disease changes in the subcortical and periventricular white matter without lost carlisle-white differentiation. The orbits and their contents are grossly within normal limits. The bony calvarium is grossly intact. The paranasal sinuses are clear. The mastoid air cells are well aerated. Impression: 1. Age-related changes of the brain without acute intracranial abnormality. Please note that all CT scans at this facility use dose modulation, iterative reconstruction, and/or weight-based dosing when appropriate to reduce radiation dose to as low as reasonably achievable. Dictated by Wood Moscoso MD @ Jul 02 2020 3:26PM Signed by Dr. Wood Moscoso @ Jul 02 2020 3:29PM
--- NOTE | 2020-07-02 15:38 | CT ---
Indication: Abdominal pain, dark stools Technique: Volumetric multidetector CT images of the abdomen and pelvis were without the administration of intravenous contrast. Comparison: CT abdomen and pelvis May 03, 2020 Findings: There is minimal basilar atelectasis, otherwise the lung bases are clear. The liver is normal in attenuation without intrahepatic biliary ductal dilatation. The gallbladder is unremarkable without evidence of radiopaque calculus. There is no significant common biliary ductal dilatation or abrupt cut off. The spleen is normal in attenuation and size. The stomach and duodenum are grossly unremarkable. There is mild pancreatic atrophy. The adrenal glands are unremarkable. There is no evidence of radiopaque calculus or hydronephrosis. There is a mild amount of stool seen throughout the colon with minimal distal colonic diverticulosis. There is no evidence of overt pericolonic inflammatory change. The appendix is unremarkable. There is no significant mesenteric, retroperitoneal, or pelvic sidewall lymph nodes. The aorta is nonaneurysmal. There is no significant atherosclerotic disease appreciated. The solid pelvic viscera are grossly unremarkable. There is no free fluid or free air. The anterior abdominal wall is intact without significant hernias. Lumbar vertebral body heights are grossly maintained with mild multi-level degenerative disc disease. There is no significant spondylolisthesis or displaced fracture. Impression: Mild to moderate stool seen throughout the colon. No evidence of significant pericolonic inflammatory changes. No definite acute intra-abdominal abnormality is appreciated. Consider follow-up upper and lower endoscopy for evaluation of dark stools if there remains persistent clinical concern. Please note that all CT scans at this facility use dose modulation, iterative reconstruction, and/or weight-based dosing when appropriate to reduce radiation dose to as low as reasonably achievable. Dictated by Wood Moscoso MD @ Jul 02 2020 3:30PM Signed by Dr. Wood Moscoso @ Jul 02 2020 3:36PM
[2020-07-02 15:47] LABS: BLOOD UREA NITROGEN,BUN 17 mg/dL (7.0-18.0); CARBON DIOXIDE,CO2 20.9 mmol/L (21.0-32.0); CHLORIDE,CL 102 mmol/L (98-107); GLUCOSE RANDOM 111 mg/dL (74-106); POTASSIUM,K 4.5 mmol/L (3.5-5.1); SODIUM,NA 135 mmol/L (136-148)
[2020-07-02 17:17] VITALS: BP 145/71; PULSE 98
== END 2020-07-02 17:24 | disposition home or self-care (01) ==
LOC: MW.ED 13:06
DX: R42 Dizziness and giddiness (principal); I48.91 Unspecified atrial fibrillation; I10 Essential (primary) hypertension; I25.2 Old myocardial infarction; E66.9 Obesity, unspecified; Z68.25 Body mass index [BMI] 25.0-25.9, adult; Z91.14 Patient's other noncompliance with medication regimen; Z79.01 Long term (current) use of anticoagulants; Z79.899 Other long term (current) drug therapy
CPT/HCPCS: 36415; 70450; 71045; 74176; 80053; 80162; 83605; 83735; 84100; 84484; 85025; 85610; 93005; 96374; 96375; 99284; C9113; J3490; J7120; 93010